=== PATIENT | male | born 1965 | race Caucasian/White ===

== ENCOUNTER 2016-08-30 11:46 | Inpatient (IN) | payer OTHER ==
[~2016-08-30] VITALS: Ht 175.3 cm; Wt 148.5 kg
[~2016-08-30 11:46] MED LIST: FOSI40TA3 PO; HYD25 PO
[2016-08-30] MEDS ORDERED: ASPIRIN 81 MG TAB PO STA (11:56)
[2016-08-30] MEDS ORDERED: NITROGLYCERIN 2% 1 GM OINT PKT TD STA (11:56)
[2016-08-30] MEDS ORDERED: NITROGLYCERIN (SL) 0.4 MG TAB SL PRN (12:00)
[2016-08-30 12:29] LABS: ADD SCAN DIFF NO
[2016-08-30 12:32] LABS: BASOPHILS % 0.5 % (0.0-2.0); EOSINOPHILS # 0.1 10^3/ul (0.0-0.5); EOSINOPHILS % 1.2 % (0.0-7.0); HEMATOCRIT 46.5 % (42.0-52.0); HEMOGLOBIN 13.5 g/dl (14.0-18.0); LYMPHOCYTES # 2.4 10^3/ul (0.8-2.9); LYMPHOCYTES % 28.1 % (15.0-51.0); MEAN CORPUSCULAR HEMOGLOBIN 24.4 pg (29.0-33.0); MEAN CORPUSCULAR VOLUME 83.9 fl (82.0-101.0); MEAN PLATELET VOLUME 11.5 fl (7.4-10.4); MONOCYTE # 0.8 10^3/ul (0.3-0.9); MONOCYTES % 9.2 % (0.0-11.0); NEUTROPHIL # 5.2 10^3/ul (1.6-7.5); NEUTROPHILS % 60.6 % (39.0-77.0); PLATELET COUNT 204 10^3/UL (140-415); RED BLOOD COUNT 5.54 10^6/ul (4.70-6.10); RED CELL DISTRIBUTION WIDTH 18.8 % (11.5-14.5); WHITE BLOOD COUNT 8.5 10^3/ul (4.8-10.8)
[2016-08-30 12:46] LABS: POTASSIUM 4.3 mmol/L (3.5-5.1)
[2016-08-30 12:48] LABS: INR 0.95; PROTIME 12.7 Sec (12.2-14.2)
[2016-08-30 12:49] LABS: CREATININE 0.76 mg/dl (0.61-1.24); PARTIAL THROMBOPLASTIN TIME 29.8 Sec (25.0-35.0)
[2016-08-30 12:50] LABS: CALCIUM 8.7 mg/dl (8.4-10.2)
--- NOTE | 2016-08-30 12:59 | RADRPT ---
PROCEDURE: XR Chest. CLINICAL INDICATION: Chest pain. TECHNIQUE: Single frontal view. COMPARISON: 04/20/2016. FINDINGS: The lungs are clear. The heart size is normal. There is no pleural effusion. There is no pneumothorax. IMPRESSION: 1. Normal chest radiograph. RPTAT: QQ .Carlos Rolle MD, MD Date Time Electronically viewed and signed by .Carlos Rolle MD, MD on 08/30/2016 12:58 .R/
[2016-08-30 13:01] LABS: TROPONIN-I 0.055 ng/ml (0.00-0.12)
[2016-08-30] MEDS ORDERED: ONDANSETRON 4 MG INJ IV PRN (13:30)
[2016-08-30] MEDS ORDERED: ACETAMINOPHEN 325 MG TAB PO PRN (13:30)
--- NOTE | 2016-08-30 14:22 | ERA ---
ER Documentation Chief Complaint Date/Time DATE: 08/30/16 TIME: 14:12 Chief Complaint cp, sob today HPI Patient is a 51-year-old male with hypertension and diabetes who presents with chest pain shortness of breath. Started this morning. He said it feels like a stabbing type pain. He felt like he would pass out. The pain comes and goes. He has had no treatment as of yet. He does not know the name of his primary doctor. Upon review of old medical records the patient one previous visit to the ER in 2016. ROS All systems reviewed and are negative except as per history of present illness. Medications Home Meds Reported Medications Hydrochlorothiazide* (Hydrochlorothiazide*) 25 Mg Tab, 25 MG PO DAILY, TAB 08/11/14 Fosinopril Sodium (Fosinopril Sodium) 40 Mg Tablet, 40 MG PO DAILY, TAB 08/11/14 Allergies Allergies: Coded Allergies: No Known Allergy (Unverified , 08/11/14) PMhx/Soc History of Surgery: Yes (LEFT KNEE) Anesthesia Reaction: No Hx Neurological Disorder: No Hx Respiratory Disorders: No Hx Cardiac Disorders: Yes (HTN) Hx Psychiatric Problems: No Hx Miscellaneous Medical Probl: Yes (DM) Hx Alcohol Use: Yes Hx Substance Use: No Hx Tobacco Use: No Smoking Status: Never smoker FmHx Family History: coronary disease Physical Exam Vitals Vital Signs Date Time Temp Pulse Resp B/P Pulse Ox O2 Delivery O2 Flow Rate FiO2 08/30/16 13:50 95 16 119/57 100 Nasal Cannula 2.0 08/30/16 12:41 Nasal Cannula 2 08/30/16 12:41 86 27 122/71 97 Nasal Cannula 2.0 08/30/16 11:51 98.4 104 20 118/78 99 Physical Exam Const: No acute distress Head: Atraumatic Eyes: Normal Conjunctiva ENT: Normal External Ears, Nose and Mouth. Neck: Full range of motion..~ No meningismus. Resp: Clear to auscultation bilaterally Cardio: Regular rate and rhythm, no murmurs Abd: Soft, non tender, non distended. Normal bowel sounds Skin: No petechiae or rashes Back: No midline or flank tenderness Ext: No cyanosis, or edema Neur: Awake and alert Psych: Normal Mood and Affect Result Diagram: 08/30/16 1220 08/30/16 1220 Results 24 hrs Laboratory Tests Test 08/30/16 12:20 White Blood Count 8.510^3/ul Red Blood Count 5.5410^6/ul Hemoglobin 13.5g/dl Hematocrit 46.5% Mean Corpuscular Volume 83.9fl Mean Corpuscular Hemoglobin 24.4pg Mean Corpuscular Hemoglobin Concent 29.0g/dl Red Cell Distribution Width 18.8% Platelet Count 62103^3/UL Mean Platelet Volume 11.5fl Neutrophils % 60.6% Lymphocytes % 28.1% Monocytes % 9.2% Eosinophils % 1.2% Basophils % 0.5% Nucleated Red Blood Cells % 0.0/100WBC Neutrophils # 5.210^3/ul Lymphocytes # 2.410^3/ul Monocytes # 0.810^3/ul Eosinophils # 0.110^3/ul Basophils # 0.010^3/ul Nucleated Red Blood Cells # 0.010^3/ul Prothrombin Time 12.7Sec Prothrombin Time Ratio 1.0 INR International Normalized Ratio 0.95 Activated Partial Thromboplast Time 29.8Sec Sodium Level 137mmol/L Potassium Level 4.3mmol/L Chloride Level 95mmol/L Carbon Dioxide Level 29mmol/L Anion Gap 17 Blood Urea Nitrogen 17mg/dl Creatinine 0.76mg/dl Glucose Level 144mg/dl Calcium Level 8.7mg/dl Troponin I 0.055ng/ml Current Medications Medications (Trade) Dose Ordered Sig/Dave Route PRN Reason Start Time Stop Time Status Last Admin Dose Admin Aspirin (Aspirin) 162 mg ONCE STAT PO 08/30/16 11:56 08/30/16 11:57 DC 08/30/16 12:39 Nitroglycerin (Nitroglycerin 2% Oint) 1 inch ONCE STAT TD 08/30/16 11:56 08/30/16 11:57 DC 08/30/16 12:38 Nitroglycerin (Nitroglycerin (Sl Tab) 0.4 Mg) 1 tab Q5M UP TO 3 DOSES PRN SL CHEST PAIN 08/30/16 12:00 Ondansetron HCl (Zofran Inj) 4 mg ER BRIDGE PRN IV NAUSEA AND/OR VOMITING 08/30/16 13:30 08/31/16 13:29 Acetaminophen (Tylenol Tab) 650 mg ER BRIDGE PRN PO MILD PAIN/FEVER 08/30/16 13:30 08/31/16 13:29 Procedures/MDM EKG #1 read by me: Rate/Rhythm: Regular rate and rhythm at a rate of 100 Intervals: Normal Impression: No evidence of ischemia or arrhythmia EKG #2 read by me: Rate/Rhythm: Regular rate and rhythm at a rate of 91 Intervals: Normal Impression: No evidence of ischemia or arrhythmia CXR neg per radiology. Patient is a 51-year-old male with multiple cardiac risk factors who presents with chest pain or shortness of breath. [address] did not show ST elevations or depressions. His troponin is 0.055. The patient was given aspirin nitroglycerin empirically. I am concerned about acute coronary syndrome. I doubt pneumonia, pneumothorax, pulmonary embolism, or aortic dissection. At this point I believe inpatient admission is appropriate. I spoke with Dr. Kate from the panel team as the patient has [employer] insurance. The patient will be admitted to a telemetry bed. Departure Diagnosis: Primary Impression: Chest pain Qualified Code: R07.9 - Chest pain, unspecified type Condition: MIKEL Ang MD August 30, 2016 14:22
[2016-08-30 15:35] VITALS: Ht 175.3 cm; Wt 148.5 kg
[2016-08-30 15:54] VITALS: BP 106/67; RESP 19
[2016-08-30 16:00] VITALS: PULSE 92
[2016-08-30] MEDS ORDERED: GLUCOSE GEL 15 GRAM TUBE PO PRN ×2 (17:00)
[2016-08-30] MEDS ORDERED: GLUCOSE GEL 15 GRAM TUBE BUCCAL PRN (17:00)
[2016-08-30] MEDS ORDERED: DEXTROSE 50% 50 ML SYRINGE IV PRN ×2 (17:00)
[2016-08-30] MEDS ORDERED: GLUCAGON 1 MG INJ IM PRN (17:00)
[2016-08-30] MEDS: INSULIN ASPART [NOVOLOG] 3 ML PEN SC SCH ×2 (18:05→21:36)
[2016-08-30 19:08] LABS: CREATINE KINASE 95 IU/L (23-200)
[2016-08-30 19:23] LABS: CK-MB 1.66 ng/ml (0.0-2.4); TROPONIN-I < 0.012 ng/ml (0.00-0.12)
[2016-08-30 20:05] VITALS: PULSE 100
[2016-08-30] MEDS ORDERED: morphine 2 MG INJ IV PRN (20:30)
[2016-08-30 20:44] VITALS: BP 95/52; RESP 20
[2016-08-30] MEDS: DOCUSATE SODIUM 100 MG CAP PO SCH (21:33)
[2016-08-30] MEDS: FAMOTIDINE 20 MG TAB PO SCH (21:33)
[2016-08-30 23:15] VITALS: PULSE 76
[2016-08-31] VITALS (11 sets, daily range): BP systolic 120–160; BP diastolic 64–91; PULSE 81–102; RESP 18–20
[2016-08-31 00:32] LABS: CREATINE KINASE 98 IU/L (23-200)
[2016-08-31 00:58] LABS: CK-MB 1.42 ng/ml (0.0-2.4); TROPONIN-I < 0.012 ng/ml (0.00-0.12)
[2016-08-31] MEDS ORDERED: ACCU-CHEK XX SCH ×2 (02:00)
--- NOTE | 2016-08-31 04:01 | HP ---
DATE OF ADMISSION: 08/30/2016 PRESENTING COMPLAINT: Chest pain. HISTORY OF PRESENTING COMPLAINT: This is a morbidly obese gentleman with a history of high blood pr essure and diabetes who comes in today because of midsternal chest pain that has been on and on for the last couple of weeks. The patient says that pain is in the midsternal region, does not exactly radiate, but says that there is some shortness of breath. Pain has been increasing in frequency ove r the last couple of weeks. The patient is obese and has been evaluated for a CPAP machine, but he reports that his doctor has never prescribed this to him. He does snore heavily. He does have a hi story of high blood pressure and diabetes. He was a previous smoker, but he quit more than 25 years ago. He does have a family history of high blood pressure, but there is no premature coronary brannon ry disease that he knows of. PAST MEDICAL HISTORY: 1. High blood pressure. 2. Diabetes. PAST SURGICAL HISTORY: Tonsillectomy and right knee surgery. ALLERGIES: NO KNOWN DRUG ALLERGIES. SOCIAL HISTORY: Quit smoking 25 years ago. Drinks alcohol occasionally. He was at a [facility] and was drinking and had acute onset of chest pain that brought him in this time. REVIEW OF SYSTEMS: A did a 12-point review of systems. He denied passing out episodes. He denied fever, denied coughing. He denies abdominal pain. He denied dysuria, blood in his stool, or hematu herman. Denies focal neurologic deficits. Denies headache, denies vision changes. PHYSICAL EXAMINATION: VITAL SIGNS: Temperature 98.4, pulse 97, respirations 16, blood pressure 196/57, saturation 100%, o xygen via nasal cannula at 2 liters a minute. GENERAL: The patient is an obese, alert, oriented. He was sleeping and snoring heavily when I walk ed in. It took a few shakes to arouse him. Once aroused, he was alert and oriented, able to give m e a history. HEENT: Head is normocephalic with equal, round, and reactive pupils. There was no sclerae jaundice . No conjunctival pallor. Mucous membranes were moist. Posterior pharynx was clear of erythema or exudate. NECK: Obese but seems supple. CHEST: Clear to auscultation with what seems like diminished air entry bilaterally; however, this c ould be due to habitus. CARDIOVASCULAR: Heart sounds S1 and S2 are appreciated. No murmurs. ABDOMEN: Obese, soft, nontender, nondistended, normoactive bowel sounds. EXTREMITIES: There was no lower extremity edema. SKIN: Devoid of rash or jaundice. LABORATORY VALUES: Basic metabolic profile was grossly unremarkable as was a CBC ordered and hypoch romia that was noted. His coag profile was also unremarkable. IMAGING: Chest x-ray did not show any acute cardiopulmonary abnormality, and his EKG on my review s howed regular rate and rhythm with mild tachycardia with a beat of [address] elevations or depressions. ASSESSMENT: The patient is a 51-year-old obese male admitted for chest pain. 1. Chest pressure, rule out acute coronary syndrome. 2. High blood pressure with good home control. 3. Highly probable obstructive sleep apnea versus obesity hypoventilation syndrome. 4. Morbid obesity. 5. Prediabetes. The patient is currently on diet control. PLAN: Admit him to telemetry floor, complete ACS rule out with 3 sets of cardiac enzymes, obtain a 2D echo, and get cardiology consultation. Further interventions will depend on his clinical course. Supportive care would include pain control, antiemetics, and antipyretics if indicated. This plan of care has been discussed with the patient. Questions have been answered. For prophylaxis, he is placed on SCD and PPI. Dictated By: CHARITY PERKINS MD BA/FRED Conf#: [id number] DID#: [id number]
[2016-08-31 07:12] LABS: ADD SCAN DIFF NO
[2016-08-31 07:18] LABS: ABNORMAL IP MESSAGE 1; BASOPHILS % 0.5 % (0.0-2.0); EOSINOPHILS # 0.1 10^3/ul (0.0-0.5); EOSINOPHILS % 1.6 % (0.0-7.0); HEMATOCRIT 48.6 % (42.0-52.0); HEMOGLOBIN 13.6 g/dl (14.0-18.0); LYMPHOCYTES % 24.5 % (15.0-51.0); MEAN CORPUSCULAR VOLUME 85.7 fl (82.0-101.0); MONOCYTE # 0.7 10^3/ul (0.3-0.9); MONOCYTES % 8.8 % (0.0-11.0); NEUTROPHIL # 5.3 10^3/ul (1.6-7.5); NEUTROPHILS % 64.4 % (39.0-77.0); PLATELET COUNT 204 10^3/UL (140-415); RED BLOOD COUNT 5.67 10^6/ul (4.70-6.10); WHITE BLOOD COUNT 8.2 10^3/ul (4.8-10.8)
[2016-08-31 07:33] LABS: POTASSIUM 4.5 mmol/L (3.5-5.1)
[2016-08-31 07:36] LABS: CALCIUM 9.1 mg/dl (8.4-10.2); CREATININE 0.75 mg/dl (0.61-1.24)
[2016-08-31 07:37] LABS: CHOL/HDL RATIO 4.3 RATIO
[2016-08-31] MEDS: INSULIN ASPART [NOVOLOG] 3 ML PEN SC SCH ×2 (08:00→11:51)
[2016-08-31] MEDS: DOCUSATE SODIUM 100 MG CAP PO SCH (08:25)
[2016-08-31] MEDS: FAMOTIDINE 20 MG TAB PO SCH (08:26)
[2016-08-31] MEDS ORDERED: ACETAMINOPHEN 325 MG TAB PO ONE (08:30)
[2016-08-31] MEDS ORDERED: HYDROCHLOROTHIAZIDE 25 MG TAB PO SCH (09:00)
[2016-08-31] MEDS ORDERED: ASPIRIN (EC) 81 MG TAB PO SCH (09:00)
[2016-08-31] MEDS ORDERED: BENAZEPRIL 40 MG TAB PO SCH (09:00)
[2016-08-31 10:21] LABS: IRON 49 ug/dl (35-150)
[2016-08-31 10:31] LABS: TOTAL IRON BINDING CAPACITY 397 ug/dl (241-421)
--- NOTE | 2016-08-31 14:05 | PN ---
Date/Time of Note Date/Time of Note DATE: 08/31/16 TIME: 14:02 Assessment/Plan VTE Prophylaxis VTE Prophylaxis Intervention: heparin Lines/Catheters IV [facility] Urinary Cath still in place: No Assessment/Plan Problems: (1) Morbid obesity with BMI of 45.0-49.9, adult Status: Chronic Comment: Patient has been counseled strenuously (2) Diabetes mellitus type 2 in obese Status: Chronic Comment: On oral agent only. Counseled on the rationale treatment risks and benefits of treatment goals of treatment especially how weight loss would be positive positive and beneficial (3) Sleep apnea Status: Chronic Comment: Due to morbid obesity. He still does not have his device with us and been in progress for over a year with his private doctor had the clinic Qualifiers: Sleep apnea type: obstructive Qualified Code: G47.33 - Obstructive sleep apnea syndrome (4) Chest pain Status: Acute Comment: I do not believe this represents cardiac disease. However given that trying to get him a stress test as an outpatient will be 9 to impossible in any type of expedient fashion will get the test done and then he will be discharged after Qualifiers: Chest pain type: unspecified Qualified Code: R07.9 - Chest pain, unspecified type Subjective 24 Hr Interval Summary Free Text/Dictation Morbidly obese male lying in bed. Constitutional: no complaints Respiratory: no complaints Cardiovascular: chest pain (Chest pain but this is described as pinpoint localized extremely atypical) Gastrointestinal: no complaints Genitourinary: no complaints Exam/Review of Systems Vital Signs Vitals Vital Signs Date Time Temp Pulse Resp B/P Pulse Ox O2 Delivery O2 Flow Rate FiO2 08/31/16 12:19 98.5 89 18 150/90 94 08/31/16 03:15 30 08/30/16 13:50 Nasal Cannula 2.0 Intake and Output 08/30/16 08/30/16 08/31/16 15:00 23:00 07:00 Intake Total 450 ml 700 ml Balance 450 ml 700 ml Exam Constitutional: alert, oriented Respiratory: clear to auscultation, normal air movement Cardiovascular: nl pulses, regular rate and rhythm Gastrointestinal: nl liver, spleen, non-tender, soft Results Result Diagram: 08/31/16 0640 08/31/16 0640 Results 24 hrs Laboratory Tests Test 08/30/16 17:27 08/30/16 18:22 08/30/16 20:24 08/31/16 02:24 Bedside Glucose 102 206 127 Creatine Kinase 95 Creatine Kinase Index 1.7 Creatinine Kinase MB (Mass) 1.66 Troponin I < 0.012 Test 08/31/16 06:40 08/31/16 07:52 08/31/16 08:04 08/31/16 09:15 White Blood Count 8.2 Red Blood Count 5.67 Hemoglobin 13.6 L Hematocrit 48.6 Mean Corpuscular Volume 85.7 Mean Corpuscular Hemoglobin 24.0 L Mean Corpuscular Hemoglobin Concent 28.0 L Red Cell Distribution Width 19.0 H Platelet Count 204 Mean Platelet Volume 12.0 H Neutrophils % 64.4 Lymphocytes % 24.5 Monocytes % 8.8 Eosinophils % 1.6 Basophils % 0.5 Nucleated Red Blood Cells % 0.0 Neutrophils # 5.3 Lymphocytes # 2.0 Monocytes # 0.7 Eosinophils # 0.1 Basophils # 0.0 Nucleated Red Blood Cells # 0.0 Sodium Level 139 Potassium Level 4.5 Chloride Level 96 L Carbon Dioxide Level 32 H Anion Gap 16 Blood Urea Nitrogen 18 Creatinine 0.75 Glucose Level 143 Hemoglobin A1c 7.6 H Calcium Level 9.1 Magnesium Level 2.0 Triglycerides Level 155 H Cholesterol Level 143 LDL Cholesterol, Calculated 79 HDL Cholesterol 33 Cholesterol/HDL Ratio 4.3 Bedside Glucose 134 111 Iron Level 49 Total Iron Binding Capacity 397 Percent Iron Saturation 12 L Test 08/31/16 11:36 Bedside Glucose 160 Medications Medications Current Medications Diagnostic Test (Pha) (Accu-Chek) 1 ea 02 XX ; Start 08/31/16 at 02:00 Diagnostic Test (Pha) (Accu-Chek) 1 ea 02 XX ; Start 08/31/16 at 02:00 Miscellaneous Information 1 ea NOTE XX ; Start 08/30/16 at 17:00 Glucose (Glutose) 15 gm Q15M PRN PO DECREASED GLUCOSE; Start 08/30/16 at 17:00 Glucose (Glutose) 22.5 gm Q15M PRN PO DECREASED GLUCOSE; Start 08/30/16 at 17:00 Dextrose (D50w Syringe) 25 ml Q15M PRN IV DECREASED GLUCOSE; Start 08/30/16 at 17:00 Dextrose (D50w Syringe) 50 ml Q15M PRN IV DECREASED GLUCOSE; Start 08/30/16 at 17:00 Glucagon (Glucagen) 1 mg Q15M PRN IM DECREASED GLUCOSE; Start 08/30/16 at 17:00 Glucose (Glutose) 15 gm Q15M PRN BUCCAL DECREASED GLUCOSE; Start 08/30/16 at 17: 00 Aspirin (Halfprin) 81 mg DAILY PO Last administered on 08/31/16 08:26; Admin Dose 81 MG; Start 08/31/16 at 09:00 Hydrochlorothiazide (Hydrochlorothiazide) 25 mg DAILY PO Last administered on 08:26; Admin Dose 25 MG; Start 08/31/16 at 09:00 Benazepril HCl (Lotensin) 40 mg DAILY PO Last administered on 08/31/16 08:27; Admin Dose 40 MG; Start 08/31/16 at 09:00 Morphine Sulfate (morphine) 2 mg Q4H PRN IV pain; Start 08/30/16 at 20:30 Famotidine (Pepcid) 20 mg BID PO Last administered on 08/31/16 08:26; Admin Dose 20 MG; Start 08/30/16 at 21:00 Docusate Sodium (Colace) 100 mg BID PO Last administered on 08/31/16 08:25; Admin Dose 100 MG; Start 08/30/16 at 21:00 MARTIN OVIEDO MD August 31, 2016 14:05
--- NOTE | 2016-08-31 14:32 | PDOCDIS ---
Discharge Instructions DIAGNOSIS Discharge Diagnosis: Atypical chest pain; morbid obesity; obstructive sleep apnea; dm2 CONDITION Patient Condition: Good HOME CARE INSTRUCTIONS: Special Diet: 1800 ADA ACTIVITY: Activity Restrictions: Avoid heavy lifting FOLLOW UP/APPOINTMENTS Appointments Primary care physician next 2 weeks; please get CPAP device; outpatient cardiac evaluation MARTIN OVIEDO MD August 31, 2016 14:32
[2016-08-31] MEDS ORDERED: ASPI-664 PO (14:33)
--- NOTE | 2016-08-31 14:33 | RADRPT ---
Echocardiogram Report Patient Name: ALVINO RODRIGUEZ Gender: Male Date: 1965 Study Date: 31-Aug-2016 Wood Buffer: [facility] Location: 5545 Ref. Physician: CHARITY PERKINS Quality: Technically Difficult Study Procedures: Transthoracic echocardiogram with complete 2D, M-Mode, and doppler examination. Indications: Chest Pain. 2D/M Mode Doppler Measurement Value Normal Ranges Measurement Value Normal Ranges LVIDd 2D 4.4 3.5 - 5.6 cm AV Peak Keith 1.2 m/sec LVIDs 2D 3.5 2.1 - 4.1 cm AV Peak PG 6.0 mmHg LVPWd 2D 1.1 0.6 - 1.1 cm LVOT Peak Keith 0.7 m/sec IVSd 2D 1.1 0.6 - 1.1 cm LVOT Peak PG 2.1 mmHg AoR Diam 2D 3.0 2.0 - 3.7 cm MV E Peak Keith 0.7 m/sec EDV 2D 88.2 cm3 MV A Peak Keith 1.0 m/sec ESV 2D 43.0 cm3 MV E/A 0.7 LA Dimen 2D 3.6 2.3 - 4.0 cm MV Decel Time 88 msec MV Decel Floyd 8 MV E/A 0.7 Findings Left Ventricle: Normal left ventricular systolic function. Normal left ventricular cavity size. Left ventricular wall thickness upper limits of normal. Ejection fraction is visually estimated at 60 %. Tissue Doppler/Mitral Doppler indices are consistent with impaired relaxation (Stage I diastolic dysfunction). Right Ventricle: Normal right ventricular size. Normal right ventricular systolic function. Left Atrium: The left atrium is normal in size. Right Atrium: Right atrium at upper limits of normal. Mitral Valve: Mild mitral annular calcification. Trace mitral regurgitation. Aortic Valve: Normal appearance of the aortic valve. No significant aortic stenosis or insufficiency. Tricuspid Valve: Tricuspid valve not well visualized. There is trace tricuspid regurgitation. Pulmonic Valve: There is trace pulmonic regurgitation. Pericardium: Normal pericardium with no significant pericardial effusion. Aorta: Normal aortic root. IVC: Dilated inferior vena cava with poor inspiratory collapse consistent with elevated right atrial pressures. Conclusions Normal left ventricular systolic function. Normal left ventricular cavity size. Left ventricular wall thickness upper limits of normal. Ejection fraction is visually estimated at 60 %. Tissue Doppler/Mitral Doppler indices are consistent with impaired relaxation (Stage I diastolic dysfunction). Normal right ventricular size. Normal right ventricular systolic function. The left atrium is normal in size. Right atrium at upper limits of normal. No significant valvular stenosis or regurgitation seen. Normal pericardium with no significant pericardial effusion. Electronically Signed By: Abdulkadir Trujillo 31-Aug-2016 14:32:29 -0700 Patient Name: ALVINO RODRIGUEZ Study Date: 31-Aug-2016 [id number]
--- NOTE | 2016-08-31 14:37 | DS ---
Date/Time of Note Date/Time of Note DATE: 08/31/16 TIME: 14:35 Discharge Summary Admission/Discharge Info Admit Date/Time August 30, 2016 at 13:08 Discharge Date/Time 08/31/2016 Final Diagnosis Atypical chest pain; diabetes mellitus type 2; morbid obesity; obstructive sleep apnea; Patient Condition: Good Consults Cardiology Procedures Echocardiogram and rule out FL protocol Hx of Present Illness This is a morbidly obese gentleman with a history of high blood pressure and diabetes who comes in today because of midsternal chest pain that has been on and on for the last couple of weeks. The patient says that pain is in the midsternal region, does not exactly radiate, but says that there is some shortness of breath. Pain has been increasing in frequency over the last couple of weeks. The patient is obese and has been evaluated for a CPAP machine , but he reports that his doctor has never prescribed this to him. He does snore heavily. He does have a history of high blood pressure and diabetes. He was a previous smoker, but he quit more than 25 years ago. He does have a family history of high blood pressure, but there is no premature coronary artery disease that he knows of. Hospital Course Patient has gone overnight with negative cardiac enzymes. On the scruff worker review of systems in my review of systems we feel this is chest wall pain and absolutely typical for cardiac pain. Patient is asymptomatic at this time. I believe it would be in the best interest of this patient is for him to get started on his CPAP and to go on a weight loss protocol to bring his weight down 10 kg. At this time he is being discharged home in improved condition as compared to the time of admission he is competent for medical decisions he has no known chemical diseases he has good rehabilitation potential. He will follow -up with his primary care physician in a week Home Meds Reported Medications Hydrochlorothiazide* (Hydrochlorothiazide*) 25 Mg Tab, 25 MG PO DAILY, TAB 08/11/14 Fosinopril Sodium (Fosinopril Sodium) 40 Mg Tablet, 40 MG PO DAILY, TAB 08/11/14 Pending Labs Laboratory Tests Test 08/30/16 17:27 08/30/16 18:22 08/30/16 20:24 08/31/16 02:24 Bedside Glucose 102mg/dL (70-220) 206mg/dL (70-220) 127mg/dL (70-220) Creatine Kinase 95IU/L (23-200) Creatine Kinase Index 1.7 Creatinine Kinase MB (Mass) 1.66ng/ml (0.0-2.4) Troponin I < 0.012ng/ml (0.00-0.12) Test 08/31/16 06:40 08/31/16 07:52 08/31/16 08:04 08/31/16 09:15 White Blood Count 8.210^3/ul (4.8-10.8) Red Blood Count 5.6710^6/ul (4.70-6.10) Hemoglobin 13.6g/dl (14.0-18.0) Hematocrit 48.6% (42.0-52.0) Mean Corpuscular Volume 85.7fl (82.0-101.0) Mean Corpuscular Hemoglobin 24.0pg (29.0-33.0) Mean Corpuscular Hemoglobin Concent 28.0g/dl (32.0-37.0) Red Cell Distribution Width 19.0% (11.5-14.5) Platelet Count 00472^3/UL (140-415) Mean Platelet Volume 12.0fl (7.4-10.4) Neutrophils % 64.4% (39.0-77.0) Lymphocytes % 24.5% (15.0-51.0) Monocytes % 8.8% (0.0-11.0) Eosinophils % 1.6% (0.0-7.0) Basophils % 0.5% (0.0-2.0) Nucleated Red Blood Cells % 0.0/100WBC (0.0-0.0) Neutrophils # 5.310^3/ul (1.6-7.5) Lymphocytes # 2.010^3/ul (0.8-2.9) Monocytes # 0.710^3/ul (0.3-0.9) Eosinophils # 0.110^3/ul (0.0-0.5) Basophils # 0.010^3/ul (0.0-0.1) Nucleated Red Blood Cells # 0.010^3/ul (0.0-0.0) Sodium Level 139mmol/L (135-144) Potassium Level 4.5mmol/L (3.5-5.1) Chloride Level 96mmol/L (97-110) Carbon Dioxide Level 32mmol/L (21-31) Anion Gap 16 (8-16) Blood Urea Nitrogen 18mg/dl (7-20) Creatinine 0.75mg/dl (0.61-1.24) Glucose Level 143mg/dl (70-220) Hemoglobin A1c 7.6% (0-5.9) Calcium Level 9.1mg/dl (8.4-10.2) Magnesium Level 2.0mg/dl (1.7-2.5) Triglycerides Level 155mg/dl (0-149) Cholesterol Level 143mg/dl (100-200) LDL Cholesterol, Calculated 79mg/dl HDL Cholesterol 33mg/dl (28-71) Cholesterol/HDL Ratio 4.3RATIO Bedside Glucose 134mg/dL (70-220) 111mg/dL (70-220) Iron Level 49ug/dl (35-150) Total Iron Binding Capacity 397ug/dl (241-421) Percent Iron Saturation 12% SAT (22-52) Test 08/31/16 11:36 Bedside Glucose 160mg/dL (70-220) MARTIN OVIEDO MD August 31, 2016 14:37
--- NOTE | 2016-08-31 14:43 | CONS ---
Date/Time of Note Date/Time of Note DATE: 08/31/16 TIME: 14:33 Assessment/Plan Assessment/Plan Additional Assessment/Plan Chest pain Preserved ejection fraction Hypertension Morbid obesity Sleep apnea -Patient with reproducible chest pain as well as sharp symptoms lasting a few seconds. Serial cardiac enzymes remain negative, ECG without significant ischemic abnormalities, echocardiogram with preserved ejection fraction. Patient with no further symptoms. Given the above workup, symptoms are unlikely to be of cardiac origin. At the current time, no further inpatient cardiac workup needed at the current time. Consultation Date/Type/Reason Admit Date/Time August 30, 2016 at 13:08 Type of Consultation: cv Reason for Consultation Chest pain Hx of Present Illness This is a 51-year-old male with past medical history of obstructive sleep apnea , hypertension, morbid obesity who presents with chest pain. First episode was while driving with one episode of sharp discomfort on the midsternum lasting for approximately 3-4 seconds. No associated shortness of breath, dizziness or lightheadedness. He had a second episode a few hours later lasting for approximately 10 seconds. Same characteristic with sharp discomfort. No associated shortness of breath, dizziness or lightheadedness. Because of the second episode of symptoms, patient came to emergency room for further evaluation and care. He did have a few brief episodes of similar discomfort overnight lasting for a few seconds and then resolved. Otherwise, he denies exertional chest pain. He does get occasional shortness of breath at rest and with activity. He complains of severe back pain over the past 2 years. 12 point review of systems was performed with all pertinent positives and negatives mentioned above and all else is negative Constitutional: no complaints Respiratory: no complaints Cardiovascular: chest pain (Chest pain but this is described as pinpoint localized extremely atypical) Gastrointestinal: no complaints Genitourinary: no complaints Past Medical History Morbid obesity Medical History: high cholesterol, hypertension Family History Significant Family History: no pertinent family hx Social History Alcohol Use: other (Occasional) Smoking Status: Former smoker Exam/Review of Systems Vital Signs Vitals Vital Signs Date Time Temp Pulse Resp B/P Pulse Ox O2 Delivery O2 Flow Rate FiO2 08/31/16 12:19 98.5 89 18 150/90 94 08/31/16 03:15 30 08/30/16 13:50 Nasal Cannula 2.0 Intake and Output 08/30/16 08/30/16 08/31/16 15:00 23:00 07:00 Intake Total 450 ml 700 ml Balance 450 ml 700 ml Exam Morbidly obese, no apparent distress Constitutional: alert, oriented Head: normocephalic Neck: supple Respiratory: clear to auscultation, normal air movement Cardiovascular: other (S1-S2 heard, no murmurs appreciated), regular rate and rhythm Gastrointestinal: bowel sounds, non-tender, other (Mild epigastric discomfort) , soft Musculoskeletal: other (Tenderness palpation left side of chest wall) Extremities: edema Results Result Diagram: 08/31/16 0640 08/31/16 0640 Results 24 hrs Laboratory Tests Test 08/30/16 17:27 08/30/16 18:22 08/30/16 20:24 08/31/16 02:24 Bedside Glucose 102 206 127 Creatine Kinase 95 Creatine Kinase Index 1.7 Creatinine Kinase MB (Mass) 1.66 Troponin I < 0.012 Test 08/31/16 06:40 08/31/16 07:52 08/31/16 08:04 08/31/16 09:15 White Blood Count 8.2 Red Blood Count 5.67 Hemoglobin 13.6 L Hematocrit 48.6 Mean Corpuscular Volume 85.7 Mean Corpuscular Hemoglobin 24.0 L Mean Corpuscular Hemoglobin Concent 28.0 L Red Cell Distribution Width 19.0 H Platelet Count 204 Mean Platelet Volume 12.0 H Neutrophils % 64.4 Lymphocytes % 24.5 Monocytes % 8.8 Eosinophils % 1.6 Basophils % 0.5 Nucleated Red Blood Cells % 0.0 Neutrophils # 5.3 Lymphocytes # 2.0 Monocytes # 0.7 Eosinophils # 0.1 Basophils # 0.0 Nucleated Red Blood Cells # 0.0 Sodium Level 139 Potassium Level 4.5 Chloride Level 96 L Carbon Dioxide Level 32 H Anion Gap 16 Blood Urea Nitrogen 18 Creatinine 0.75 Glucose Level 143 Hemoglobin A1c 7.6 H Calcium Level 9.1 Magnesium Level 2.0 Triglycerides Level 155 H Cholesterol Level 143 LDL Cholesterol, Calculated 79 HDL Cholesterol 33 Cholesterol/HDL Ratio 4.3 Bedside Glucose 134 111 Iron Level 49 Total Iron Binding Capacity 397 Percent Iron Saturation 12 L Test 08/31/16 11:36 Bedside Glucose 160 Medications Medications Current Medications Diagnostic Test (Pha) (Accu-Chek) XX ; Start 08/31/16 at 02:00 Diagnostic Test (Pha) (Accu-Chek) XX ; Start 08/31/16 at 02:00 Miscellaneous Information 1 ea NOTE XX ; Start 08/30/16 at 17:00 Glucose (Glutose) 15 gm Q15M PRN PO DECREASED GLUCOSE; Start 08/30/16 at 17:00 Glucose (Glutose) 22.5 gm Q15M PRN PO DECREASED GLUCOSE; Start 08/30/16 at 17:00 Dextrose (D50w Syringe) 25 ml Q15M PRN IV DECREASED GLUCOSE; Start 08/30/16 at 17:00 Dextrose (D50w Syringe) 50 ml Q15M PRN IV DECREASED GLUCOSE; Start 08/30/16 at 17:00 Glucagon (Glucagen) 1 mg Q15M PRN IM DECREASED GLUCOSE; Start 08/30/16 at 17:00 Glucose (Glutose) 15 gm Q15M PRN BUCCAL DECREASED GLUCOSE; Start 08/30/16 at 17: 00 Aspirin (Halfprin) 81 mg DAILY PO Last administered on 08/31/16 08:26; Admin Dose 81 MG; Start 08/31/16 at 09:00 Hydrochlorothiazide (Hydrochlorothiazide) 25 mg DAILY PO Last administered on 08:26; Admin Dose 25 MG; Start 08/31/16 at 09:00 Benazepril HCl (Lotensin) 40 mg DAILY PO Last administered on 08/31/16 08:27; Admin Dose 40 MG; Start 08/31/16 at 09:00 Morphine Sulfate (morphine) 2 mg Q4H PRN IV pain; Start 08/30/16 at 20:30 Famotidine (Pepcid) 20 mg BID PO Last administered on 08/31/16 08:26; Admin Dose 20 MG; Start 08/30/16 at 21:00 Docusate Sodium (Colace) 100 mg BID PO Last administered on 08/31/16 08:25; Admin Dose 100 MG; Start 08/30/16 at 21:00 Procedures Procedures ECG demonstrates sinus rhythm at 100 bpm, normal QRS duration, no significant ischemic STT wave abnormalities Abdulkadir Trujillo DO August 31, 2016 14:43
== END 2016-08-31 16:52 | disposition home or self-care (01) | DRG 313 ==
LOC: E/R 11:46 → MS4 13:08
PROVIDERS: ADMIT Family Medicine; ATTEND Family Medicine
PROC: 5A09357 Assistance with Respiratory Ventilation, Less than 24 Consecutive Hours, Continuous Positive Airway Pressure (ICD-10-PCS; principal; 2016-08-30)
DX: R07.89 Other chest pain (principal); E66.2 Morbid (severe) obesity with alveolar hypoventilation; I10 Essential (primary) hypertension; Z68.42 Body mass index [BMI] 45.0-49.9, adult; E11.9 Type 2 diabetes mellitus without complications; G47.33 Obstructive sleep apnea (adult) (pediatric); Z79.4 Long term (current) use of insulin; Z87.891 Personal history of nicotine dependence
CPT/HCPCS: 36415; 71010; 80048; 80061; 82550; 82553; 82962; 83036; 83540; 83735; 84484; 85025; 85610; 85730; 93005; 93306; 94660; J1815

== ENCOUNTER 2016-12-22 00:13 | Inpatient (IN) | payer OTHER ==
[~2016-12-22] VITALS: Ht 175.3 cm; Wt 103.5 kg
[~2016-12-22 00:13] MED LIST changes: +ASPI-664 PO
[2016-12-22] MEDS ORDERED: SOD CHLORIDE 0.9% 1,000 ML IV STA ×4 (00:51→04:48)
[2016-12-22 01:43] LABS: BASOPHIL # 0.1 10^3/ul (0.0-0.1); BASOPHILS % 0.5 % (0.0-2.0); EOSINOPHILS # 0.1 10^3/ul (0.0-0.5); EOSINOPHILS % 0.4 % (0.0-7.0); HEMATOCRIT 47.5 % (42.0-52.0); HEMOGLOBIN 14.4 g/dl (14.0-18.0); LYMPHOCYTES # 3.3 10^3/ul (0.8-2.9); LYMPHOCYTES % 21.9 % (15.0-51.0); MEAN CORPUSCULAR HGB CONC 30.3 g/dl (32.0-37.0); MEAN CORPUSCULAR VOLUME 85.7 fl (82.0-101.0); MEAN PLATELET VOLUME 12.1 fl (7.4-10.4); MONOCYTE # 1.4 10^3/ul (0.3-0.9); MONOCYTES % 9.4 % (0.0-11.0); NEUTROPHILS % 67.1 % (39.0-77.0); PLATELET COUNT 245 10^3/UL (140-415); RED BLOOD COUNT 5.54 10^6/ul (4.70-6.10); RED CELL DISTRIBUTION WIDTH 15.5 % (11.5-14.5); WHITE BLOOD COUNT 15.2 10^3/ul (4.8-10.8)
--- NOTE | 2016-12-22 02:01 | RADRPT ---
PROCEDURE: XR Chest. CLINICAL INDICATION: Chest pain. TECHNIQUE: Single frontal chest x-ray. COMPARISON: 08/30/2016 FINDINGS: The cardiomediastinal silhouette is unremarkable. There is no congestive heart failure.. No focal i nfiltrate is seen. There is no pleural effusion. There is no pneumothorax. The osseous structures are unremarkable. IMPRESSION: 1. No active disease. RPTAT: HMVK .Abdulkadir Maloney MD, MD Date Time Electronically viewed and signed by .Abdulkadir Maloney MD, on 12/22/2016 02:00 .K/
[2016-12-22 02:05] LABS: CALCIUM 9.9 mg/dl (8.4-10.2); CREATININE 2.26 mg/dl (0.61-1.24); POTASSIUM 4.2 mmol/L (3.5-5.1)
[2016-12-22 02:15] LABS: TROPONIN-I 0.025 ng/ml (0.00-0.12)
--- NOTE | 2016-12-22 02:15 | RADRPT ---
PROCEDURE: CT BRAIN WITHOUT CONTRAST CLINICAL INDICATION: 51-year-old male with headaches. TECHNIQUE: The study was performed utilizing a GE LightSpeed VCT 64-slice CT scanner. Direct axia l sections were obtained from the foramen magnum to the vertex without the use of intravenous contra st material. Sagittal and coronal reformations were obtained. One or more the following dose reduct ion techniques were utilized: automated exposure control, adjustment of the mA and/or kV according t o patient's size or use of iterative reconstruction technique. The images were viewed on a PACS [employer]. CTD/vol = 45.0 mGy; Total Exam DLP = 720.2 mGy-cm. COMPARISON: None. FINDINGS: The ventricles have a normal size, shape and position. There is no evidence for mass effect or midl ine shift. There are no intracranial areas of abnormal attenuation. There is no evidence for acute intra or extra-axial blood. The bony calvarium is intact. Bilateral proptosis is noted. There is mi nimal polypoidal mucosal thickening within the inferior maxillary sinuses. No air-fluid levels are noted. The mastoid air cells are without significant soft tissue. IMPRESSION: 1. The intracranial contents are unremarkable on this noncontrast CT scan of the brain. 2. Bilateral proptosis. 3. Minimal polypoidal mucosal thickening maxillary sinuses. .Ar Ortiz MD, Date Time Electronically viewed and signed by .Ar Ortiz MD, on 12/22/2016 02:15 .M/
[2016-12-22 03:27] LABS: ALBUMIN 4.4 g/dl (3.3-4.9); BILIRUBIN,INDIRECT 0.2 mg/dl (0-1.1); BILIRUBIN,TOTAL 0.2 mg/dl (0.2-1.3)
--- NOTE | 2016-12-22 03:33 | ERA ---
ER Documentation Chief Complaint Date/Time DATE: 12/22/16 TIME: 03:30 Chief Complaint dizzy x 2 days w/ his BP checked@60 systole@home, hx HTN/DM HPI Patient is a 51-year-old male with hypertension diabetes who says "I do not feel good". His blood pressure was 60/48 at home when he checked it. He said that for the past 2 weeks he has been feeling bad. He said 2 weeks ago he started after eating at the beach when he had blurry vision and cold sweats. He did not go to the ER and has been feeling like this for the past 2 weeks when he decided to come to the ER today. Upon review of old medical records this is the patient's third visit to the ER since 2016. ROS All systems reviewed and are negative except as per history of present illness. Medications Home Meds Active Scripts Aspirin* (Aspirin* EC) 81 Mg Tablet.dr, 81 MG PO DAILY for 90 Days, 1 Refill Prov:MARTIN OVIEDO MD 08/31/16 Reported Medications Hydrochlorothiazide* (Hydrochlorothiazide*) 25 Mg Tab, 25 MG PO DAILY, TAB 08/11/14 Fosinopril Sodium (Fosinopril Sodium) 40 Mg Tablet, 40 MG PO DAILY, TAB 08/11/14 Allergies Allergies: Coded Allergies: No Known Allergy (Unverified , 08/11/14) PMhx/Soc History of Surgery: Yes (knee surgery) Anesthesia Reaction: No Hx Neurological Disorder: No Hx Respiratory Disorders: No Hx Cardiac Disorders: Yes (HTN) Hx Psychiatric Problems: No Hx Miscellaneous Medical Probl: Yes (DM, BPH, GERD) Hx Alcohol Use: Yes Hx Substance Use: No Hx Tobacco Use: Yes Smoking Status: Never smoker FmHx Family History: coronary disease Physical Exam Vitals Vital Signs Date Time Temp Pulse Resp B/P Pulse Ox O2 Delivery O2 Flow Rate FiO2 12/22/16 02:58 79 18 88/62 97 Room Air 12/22/16 00:39 98.6 100 20 97/55 99 Physical Exam Const: No acute distress Head: Atraumatic Eyes: Normal Conjunctiva ENT: Normal External Ears, Nose and Mouth. Neck: Full range of motion..~ No meningismus. Resp: Clear to auscultation bilaterally Cardio: Regular rate and rhythm, no murmurs Abd: Soft, non tender, non distended. Normal bowel sounds Skin: No petechiae or rashes Back: No midline or flank tenderness Ext: No cyanosis, or edema Neur: Awake and alert, Cranial nerves II through XII are intact, no slurred speech Psych: Normal Mood and Affect Result Diagram: 12/22/1610412/22/16104 Results 24 hrs Laboratory Tests Test 12/22/16 01:05 White Blood Count 15.210^3/ul Red Blood Count 5.5410^6/ul Hemoglobin 14.4g/dl Hematocrit 47.5% Mean Corpuscular Volume 85.7fl Mean Corpuscular Hemoglobin 26.0pg Mean Corpuscular Hemoglobin Concent 30.3g/dl Red Cell Distribution Width 15.5% Platelet Count 79420^3/UL Mean Platelet Volume 12.1fl Neutrophils % 67.1% Lymphocytes % 21.9% Monocytes % 9.4% Eosinophils % 0.4% Basophils % 0.5% Nucleated Red Blood Cells % 0.0/100WBC Neutrophils # (Manual) 10.210^3/ul Lymphocytes # 3.310^3/ul Monocytes # 1.410^3/ul Eosinophils # 0.110^3/ul Basophils # 0.110^3/ul Nucleated Red Blood Cells # 0.010^3/ul Sodium Level 140mmol/L Potassium Level 4.2mmol/L Chloride Level 99mmol/L Carbon Dioxide Level 24mmol/L Anion Gap 21 Blood Urea Nitrogen 36mg/dl Creatinine 2.26mg/dl Glucose Level 161mg/dl Calcium Level 9.9mg/dl Total Bilirubin 0.2mg/dl Direct Bilirubin 0.00mg/dl Indirect Bilirubin 0.2mg/dl Aspartate Amino Transf (AST/SGOT) 29IU/L Alanine Aminotransferase (ALT/SGPT) 51IU/L Alkaline Phosphatase 87IU/L Troponin I 0.025ng/ml Total Protein 8.0g/dl Albumin 4.4g/dl Lipase 152U/L Current Medications Medications (Trade) Dose Ordered Sig/Dave Route PRN Reason Start Time Stop Time Status Last Admin Dose Admin Sodium Chloride 1,000 ml @ 1,000 mls/hr Q1H STAT IV 12/22/16 00:51 12/22/16 01:50 DC 12/22/16 01:17 Sodium Chloride (NS) 1,000 ml @ 1,000 mls/hr Q1H STAT IV 12/22/16 02:49 12/22/16 03:48 12/22/16 02:55 Procedures/MDM EKG read by me: Rate/Rhythm: Sinus tachycardia rate of 105 Intervals: Normal Impression: Sinus tachycardia without ischemia CT brain negative per radiology. Chest x-ray negative per radiology. Patient is a 51-year-old male with diabetes and hypertension who presents not feeling well. He had low blood pressure. He normally has high blood pressure. He was found to have an elevated creatinine of 2.25 which is elevated from 0.75 when he was here in August. This shows acute renal failure and I am concerned about his uncontrolled diabetes and hypertension may be the cause of this. He will need admission to the hospital for further treatment. He was given 2 L of normal saline for fluid resuscitation. I doubt sepsis at this time the patient otherwise looks well. I believe his blood pressure may be related to poor ability to obtain the blood pressure given his obesity. Critical Care: Time: 35 minutes excluding all billable procedures. Treatments/Evaluations: Close monitoring and treatment of unstable vital signs, cardiorespiratory, and neurologic status, while maintaining tight balance of fluid, respiratory, and cardiac interventions. Departure Diagnosis: Primary Impression: Acute renal failure Qualified Code: N17.9 - Acute renal failure, unspecified acute renal failure type Additional Impression: Hypotension Qualified Code: I95.9 - Hypotension, unspecified hypotension type Condition: MIKEL Ang MD Dec 22, 2016 03:33
--- NOTE | 2016-12-22 04:15 | HP ---
Date/Time of Note Date/Time of Note DATE: 12/22/16 TIME: 03:57 Assessment/Plan VTE Prophylaxis VTE Prophylaxis Intervention: LMWH Lines/Catheters IV [facility] [place] Assessment/Plan Assessment/Plan 51 yo M with 1. Headache/ dizziness x 2weeks 2, Hypotension which could be causing #1 3. DANIELITO 4. DM tyoe 2 5. Obesity BMI 33.7 6. Leucocytosis , ?reactive Discussion: Symptoms may be related to medication misuse, but patient will need to be ruled out for acute CVA and ACS and may need further workup if symptoms don't improve. PLAN: Telemetry admission, trend cardiac enzymes, 2d echo if none recently / MRI brain oxygen and nitroglycerin therapy as needed / IV hydration Low calorie diet / SSI Daily aspirin if no allergy or bleeding risk. Get lipid profile, magnesium and TSH levels in am. Further evaluation and treatment will be based on clinical course and findings Supportive care Plan of care has been discussed with patient, questions answered and patient has verbalized understanding. Please review chart and notes for further information if needed. PROPHYLAXIS: Pepcid and lovenox HPI/ROS Admit Date/Time Admit Date/Time 12/22/16 Hx of Present Illness This is a 51-year-old male who presents to the emergency room because of a sick feeling. His symptoms have been going on for about 2 weeks. He describes multiple symptoms like headaches, dizziness, lightheadedness. He has had episodes of blurry vision and cold sweats as well. The patient family checked his blood pressure yesterday and today and they noticed was quite slow. So they brought into the ER to be evaluated. He has had no fever, he has had no dysuria or hematuria. He denies taking his medications for high blood pressure he states he takes his medications as prescribed. Concerning findings in the emergency room included hypotension and abnormal renal function which is acute and as such she is being admitted for further workup. ROS 12 point review if systems was done and pertinent findings are as noted. PMH/Family/Social Past Medical History * HTN * DM Past Surgical History * Tosillectomy * R knee surgery Family History Significant Family History: hypertension Social History Alcohol Use: occasionally Smoking Status: Never smoker Exam/Review of Systems Vital Signs Vitals VS - Last 72 Hours, by Label Date Time Temp Pulse Resp B/P Pulse Ox O2 Delivery O2 Flow Rate FiO2 12/22/16 02:58 79 18 88/62 97 Room Air 12/22/16 00:39 98.6 100 20 97/55 99 Vital Signs Date Time Temp Pulse Resp B/P Pulse Ox O2 Delivery O2 Flow Rate FiO2 12/22/16 02:58 79 18 88/62 97 Room Air 12/22/16 00:39 98.6 Exam Constitutional: alert, oriented, No distress Psych: nl mood/affect Head: atraumatic, normocephalic Eyes: PERRL, No icteric ENMT: mucosa pink and moist Neck: non-tender, supple, No jvd Respiratory: clear to auscultation, diminished breath sounds Cardiovascular: nl pulses, regular rate and rhythm Gastrointestinal: bowel sounds, non-tender, soft Extremities: No edema Neurological: nl mental status Labs Result Diagram: 12/22/1610412/22/16104 Procedures Procedures Laboratory Tests Test 12/22/16 01:05 White Blood Count 15.210^3/ul Red Blood Count 5.5410^6/ul Hemoglobin 14.4g/dl Hematocrit 47.5% Mean Corpuscular Volume 85.7fl Mean Corpuscular Hemoglobin 26.0pg Mean Corpuscular Hemoglobin Concent 30.3g/dl Red Cell Distribution Width 15.5% Platelet Count 77025^3/UL Mean Platelet Volume 12.1fl Neutrophils % 67.1% Lymphocytes % 21.9% Monocytes % 9.4% Eosinophils % 0.4% Basophils % 0.5% Nucleated Red Blood Cells % 0.0/100WBC Neutrophils # (Manual) 10.210^3/ul Lymphocytes # 3.310^3/ul Monocytes # 1.410^3/ul Eosinophils # 0.110^3/ul Basophils # 0.110^3/ul Nucleated Red Blood Cells # 0.010^3/ul Sodium Level 140mmol/L Potassium Level 4.2mmol/L Chloride Level 99mmol/L Carbon Dioxide Level 24mmol/L Anion Gap 21 Blood Urea Nitrogen 36mg/dl Creatinine 2.26mg/dl Glucose Level 161mg/dl Calcium Level 9.9mg/dl Total Bilirubin 0.2mg/dl Direct Bilirubin 0.00mg/dl Indirect Bilirubin 0.2mg/dl Aspartate Amino Transf (AST/SGOT) 29IU/L Alanine Aminotransferase (ALT/SGPT) 51IU/L Alkaline Phosphatase 87IU/L Troponin I 0.025ng/ml Total Protein 8.0g/dl Albumin 4.4g/dl Lipase 152U/L Current Medications Medications (Trade) Dose Ordered Sig/Dave Route PRN Reason Start Time Stop Time Status Last Admin Dose Admin Sodium Chloride 1,000 ml @ 1,000 mls/hr Q1H STAT IV 12/22/16 00:51 12/22/16 01:50 DC 12/22/16 01:17 1,000 MLS/HR Sodium Chloride (NS) 1,000 ml @ 1,000 mls/hr Q1H STAT IV 12/22/16 02:49 12/22/16 03:48 DC 12/22/16 02:55 1,000 MLS/HR I reviewed EKG Rate: tachycardia 115 Rhythm: sinus Note: No ST elevation or depressions noted concerning for acute ischemic event. PROCEDURE: CT BRAIN WITHOUT CONTRAST CLINICAL INDICATION: 51-year-old male with headaches. TECHNIQUE: The study was performed utilizing a [employer] 64-slice CT scanner. Direct axial sections were obtained from the foramen magnum to the vertex without the use of intravenous contrast material. Sagittal and coronal reformations were obtained. One or more the following dose reduction techniques were utilized: automated exposure control, adjustment of the mA and/or kV according to patient's size or use of iterative reconstruction technique. The images were viewed on a PACS workstation. CTD/vol = 45.0 mGy; Total Exam DLP = 720.2 mGy-cm. COMPARISON: None. FINDINGS: The ventricles have a normal size, shape and position. There is no evidence for mass effect or midline shift. There are no intracranial areas of abnormal attenuation. There is no evidence for acute intra or extra-axial blood. The bony calvarium is intact. Bilateral proptosis is noted. There is minimal polypoidal mucosal thickening within the inferior maxillary sinuses. No air- fluid levels are noted. The mastoid air cells are without significant soft tissue. IMPRESSION: 1. The intracranial contents are unremarkable on this noncontrast CT scan of the brain. 2. Bilateral proptosis. 3. Minimal polypoidal mucosal thickening maxillary sinuses. .Ar Ortiz MD, MD Date Time Electronically viewed and signed by .Ar Ortiz MD, on 12/22/2016 02:15 .M/ PROCEDURE: XR Chest. CLINICAL INDICATION: Chest pain. TECHNIQUE: Single frontal chest x-ray. COMPARISON: 08/30/2016 FINDINGS: The cardiomediastinal silhouette is unremarkable. There is no congestive heart failure.. No focal infiltrate is seen. There is no pleural effusion. There is no pneumothorax. The osseous structures are unremarkable. IMPRESSION: 1. No active disease. RPTAT: HMVK .Abdulkadir Maloney MD, MD Date Time Electronically viewed and signed by .Abdulkadir Maloney MD, MD on 12/22/2016 02:00 .K/ CC: MIKEL OROSCO MD Echocardiogram Report Patient Name: ALVINO RODRIGUEZ Gender: Male Date: 1965 Study Date: 31-Aug-2016 [employer] Farmworker: JO[facility] Location: 5545 Ref. Physician: CHARITY PERKINS Quality: Technically Difficult Study Procedures: Transthoracic echocardiogram with complete 2D, M-Mode, and doppler examination. Indications: Chest Pain. 2D/M Mode Doppler Measurement Value Normal Ranges Measurement Value Normal Ranges LVIDd 2D 4.4 3.5 - 5.6 cm AV Peak Keith 1.2 m/sec LVIDs 2D 3.5 2.1 - 4.1 cm AV Peak PG 6.0 mmHg LVPWd 2D 1.1 0.6 - 1.1 cm LVOT Peak Keith 0.7 m/sec IVSd 2D 1.1 0.6 - 1.1 cm LVOT Peak PG 2.1 mmHg AoR Diam 2D 3.0 2.0 - 3.7 cm MV E Peak Keith 0.7 m/sec EDV 2D 88.2 cm3 MV A Peak Keith 1.0 m/sec ESV 2D 43.0 cm3 MV E/A 0.7 LA Dimen 2D 3.6 2.3 - 4.0 cm MV Decel Time 88 msec MV Decel [place] 8 MV E/A 0.7 Findings Left Ventricle: Normal left ventricular systolic function. Normal left ventricular cavity size. Left ventricular wall thickness upper limits of normal. Ejection fraction is visually estimated at 60 %. Tissue Doppler/Mitral Doppler indices are consistent with impaired relaxation (Stage I diastolic dysfunction). Right Ventricle: Normal right ventricular size. Normal right ventricular systolic function. Left Atrium: The left atrium is normal in size. Right Atrium: Right atrium at upper limits of normal. Mitral Valve: Mild mitral annular calcification. Trace mitral regurgitation. Aortic Valve: Normal appearance of the aortic valve. No significant aortic stenosis or insufficiency. Tricuspid Valve: Tricuspid valve not well visualized. There is trace tricuspid regurgitation. Pulmonic Valve: There is trace pulmonic regurgitation. Pericardium: Normal pericardium with no significant pericardial effusion. Aorta: Normal aortic root. IVC: Dilated inferior vena cava with poor inspiratory collapse consistent with elevated right atrial pressures. Conclusions Normal left ventricular systolic function. Normal left ventricular cavity size. Left ventricular wall thickness upper limits of normal. Ejection fraction is visually estimated at 60 %. Tissue Doppler/Mitral Doppler indices are consistent with impaired relaxation (Stage I diastolic dysfunction). Normal right ventricular size. Normal right ventricular systolic function. The left atrium is normal in size. Right atrium at upper limits of normal. No significant valvular stenosis or regurgitation seen. Normal pericardium with no significant pericardial effusion. Electronically Signed By: Abdulkadir Trujillo 31-Aug-2016 14:32:29 -0700 Patient Name: ALVINO RODRIGUEZ Study Date: 31-Aug-[id number] CHARITY PERKINS Dec 22, 2016 04:08
[2016-12-22] MEDS: SOD CHLORIDE 0.9% 1,000 ML IV SCH ×3 (04:30→21:02)
[2016-12-22] MEDS ORDERED: ACETAMINOPHEN 325 MG TAB PO PRN (04:30)
[2016-12-22] MEDS ORDERED: ONDANSETRON 4 MG INJ IV PRN ×2 (04:30)
[2016-12-22] MEDS ORDERED: DEXTROSE 50% 50 ML SYRINGE IV PRN ×2 (05:00)
[2016-12-22] MEDS ORDERED: GLUCAGON 1 MG INJ IM PRN (05:00)
[2016-12-22] MEDS ORDERED: GLUCOSE GEL 15 GRAM TUBE PO PRN ×2 (05:00)
[2016-12-22] MEDS ORDERED: GLUCOSE GEL 15 GRAM TUBE BUCCAL PRN (05:00)
[2016-12-22 05:26] LABS: ADD UMIC YES; UR ASCORBIC ACID NEGATIVE (NEGATIVE); UR BILIRUBIN (Dip) NEGATIVE (NEGATIVE); UR BLOOD (Dip) NEGATIVE (NEGATIVE); UR CLARITY SLIGHTLY CLOUDY (CLEAR); UR COLOR YELLOW (YELLOW); UR GLUCOSE (Dip) NEGATIVE (NEGATIVE); UR KETONES (Dip) NEGATIVE (NEGATIVE); UR LEUKOCYTE ESTERASE (Dip) NEGATIVE Leu/ul (NEGATIVE); UR MUCUS FEW /HPF (NONE SEEN); UR NITRITE (Dip) NEGATIVE (NEGATIVE); UR RBC 1 /HPF (0-5); UR SPECIFIC GRAVITY (Dip) 1.026 (1.003-1.030); UR SQUAMOUS EPITHELIAL CELL FEW /HPF (FEW); UR TOTAL PROTEIN (Dip) 1+ mg/dl (NEGATIVE); UR UROBILINOGEN (Dip) NEGATIVE (NEGATIVE)
[2016-12-22 05:37] LABS: BARBITURATES Negative (NEGATIVE); BENZODIAZEPINES Negative (NEGATIVE); CANNABINOIDS Negative (NEGATIVE); COCAINE Negative (NEGATIVE); OPIATES Positive (NEGATIVE)
[2016-12-22 06:47] LABS: PHOSPHORUS 4.9 mg/dl (2.5-4.9)
[2016-12-22 06:55] LABS: TROPONIN-I 0.014 ng/ml (0.00-0.12)
[2016-12-22 06:59] LABS: CK-MB 2.77 ng/ml (0.0-2.4)
[2016-12-22 07:15] LABS: THYROID STIMULATING HORMONE 2.46 MIU/L (0.465-4.680)
[2016-12-22] MEDS: INSULIN ASPART [NOVOLOG] 3 ML PEN SC SCH ×3 (08:00→17:24)
[2016-12-22 08:25] VITALS: TEMP 98.4
[2016-12-22] MEDS: ASPIRIN (EC) 81 MG TAB PO SCH (09:16)
[2016-12-22] MEDS: FAMOTIDINE 20 MG TAB PO SCH (09:16)
[2016-12-22] MEDS: DOCUSATE SODIUM 100 MG CAP PO SCH ×2 (09:16→20:59)
[2016-12-22 09:37] VITALS: BP 134/84; PULSE 85; RESP 22
--- NOTE | 2016-12-22 11:30 | RADRPT ---
PROCEDURE: MRI Brain without contrast. CLINICAL INDICATION: Headaches and dizziness TECHNIQUE: Multiplanar MRI of the brain without contrast was performed on a 3.0 T scanner with the following sequences obtained: T1-weighted, T2-weighted/FLAIR, diffusion weighted (with ADC map), GR E. COMPARISON: CT brain 12/22/2016 FINDINGS: No acute/recent ischemic infarction or intracranial hemorrhage / blood degradation products are iden tified. No extra-axial fluid collection is seen. There is no mass effect. No midline shift is identified. The ventricles and sulci are within normal limits for size and configuration. A few scattered minimal areas of increased T2-weighted signal intensity are seen in the deep white m atter which nonspecific. Flow voids are identified in the proximal intracranial arteries and dural sinuses suggesting patency . Small bilateral maxillary and right sphenoid sinus mucous retention cysts are noted. IMPRESSION: 1. No evidence of acute intracranial pathology. 2. Minimal nonspecific white matter changes, which may reflect chronic small vessel ischemic change s, possibly sequela of complicated migraines. RPTAT: VV .Luis A Ballesteros MD, MD Date Time Electronically viewed and signed by .Luis A Ballesteros MD, on 12/22/2016 11:29 .O/
[2016-12-22 12:00] VITALS: PULSE 84
[2016-12-22 14:07] LABS: CREATINE KINASE 232 IU/L (23-200)
[2016-12-22 14:25] LABS: CK-MB 2.79 ng/ml (0.0-2.4); TROPONIN-I < 0.012 ng/ml (0.00-0.12)
[2016-12-22 16:00] VITALS: PULSE 81
[2016-12-22] MEDS ORDERED: SOD CHLORIDE 0.9% 1,000 ML IV SCH (17:00)
--- NOTE | 2016-12-22 18:54 | HP ---
Date/Time of Note Date/Time of Note DATE: 12/22/16 TIME: 18:51 Assessment/Plan VTE Prophylaxis VTE Prophylaxis Intervention: SCD's Lines/Catheters (ICD-10 Req.) IV Catheter Type (from Nrsg): Saline Lock HPI/ROS Admit Date/Time Admit Date/Time 12/22/16 Hx of Present Illness Patient seen and examined. Note dictated and to follow. Please call if questions or concerns: [phone]. Thank you for allowing me to participate in Mr. Fernandez's care. ROS Psychological: nl mood/affect PMH/Family/Social Social History Alcohol Use: occasionally Smoking Status: Never smoker Exam/Review of Systems Vital Signs Vitals Vital Signs Date Time Temp Pulse Resp B/P Pulse Ox O2 Delivery O2 Flow Rate FiO2 12/22/16 16:00 81 12/22/16 09:37 22 134/84 98 Room Air 12/22/16 08:25 98.4 Labs Result Diagram: 12/22/16 01012/22/16 010 Medications Medications Current Medications Aspirin (Halfprin) 81 mg DAILY PO Last administered on 12/22/16 09:16; Admin Dose 81 MG; Start 12/22/16 at 09:00 Ondansetron HCl (Zofran Inj) 4 mg Q6H PRN IV NAUSEA AND/OR VOMITING; Start at 04:30 Famotidine (Pepcid) 20 mg DAILY PO Last administered on 12/22/16 09:16; Admin Dose 20 MG; Start 12/22/16 at 09:00 Docusate Sodium (Colace) 100 mg BID PO Last administered on 12/22/16 09:16; Admin Dose 100 MG; Start 12/22/16 at 09:00 Diagnostic Test (Pha) (Accu-Chek) 1 ea 02 XX ; Start 12/23/16 at 02:00 Miscellaneous Information 1 ea NOTE XX ; Start 12/22/16 at 05:00 Glucose (Glutose) 15 gm Q15M PRN PO DECREASED GLUCOSE; Start 12/22/16 at 05:00 Glucose (Glutose) 22.5 gm Q15M PRN PO DECREASED GLUCOSE; Start 12/22/16 at 05: 00 Dextrose (D50w Syringe) 25 ml Q15M PRN IV DECREASED GLUCOSE; Start 12/22/16 at 05:00 Dextrose (D50w Syringe) 50 ml Q15M PRN IV DECREASED GLUCOSE; Start 12/22/16 at 05:00 Glucagon (Glucagen) 1 mg Q15M PRN IM DECREASED GLUCOSE; Start 12/22/16 at 05:00 Glucose 15 gm 15 gm Q15M PRN BUCCAL DECREASED GLUCOSE; Start 12/22/16 at 05:00 Sodium Chloride 1,000 ml @ 80 mls/hr [id number] IV ; Start 12/22/16 at 17:00 Sodium Chloride (NS) 1,000 ml @ 125 mls/hr Q8H IV ; Start 12/22/16 at 19:00; Stop 12/23/16 at 18:59; Status FREDY HERRERA MD Dec 22, 2016 18:54
[2016-12-22 20:00] VITALS: PULSE 83
[2016-12-22 21:08] VITALS: BP 146/84; PULSE 81; RESP 18
[2016-12-23] VITALS (14 sets, daily range): BP systolic 133–159; BP diastolic 78–98; PULSE 75–80; RESP 18; Ht 175.3 cm; Wt 103.5 kg
[2016-12-23] MEDS: INSULIN ASPART [NOVOLOG] 3 ML PEN SC SCH ×5 (00:30→20:43)
[2016-12-23] MEDS: ACCU-CHEK XX SCH (01:32)
[2016-12-23] MEDS: SOD CHLORIDE 0.9% 1,000 ML IV SCH ×3 (03:00→11:00)
--- NOTE | 2016-12-23 05:19 | CONS ---
DATE OF ADMISSION: 12/22/2016 DATE OF CONSULTATION: 12/22/2016 REASON FOR CONSULT: Acute kidney injury. HISTORY OF PRESENT ILLNESS: The patient is a pleasant 51-year- old gentleman with a past medical history of type 2 diabetes mellitus for about 1 year, hypertension, and morbid obesity who presented to [facility] for evaluation of headaches and dizziness of 2 weeks' duration. Upon presentation, the gentleman was found to have a systolic blood pressure in the 80s. To complicate matters, laboratory data also revealed an elevated creatinine of 2.26 mg/dL. Of note, his last creatinine on August 2016 was 0.5 mg/dL. He denies any nausea or vomiting or outflow issues. A Renal consultation has been placed to address this gentleman's acute decline in GFR. ALLERGIES: HE HAS NO KNOWN DRUG ALLERGIES. REVIEW OF SYSTEMS: He currently denies any nausea, vomiting, diarrhea, dysuria, chest pain, or shortness of breath. PAST MEDICAL HISTORY: 1. Hypertension. 2. Type 2 diabetes mellitus. OUTPATIENT MEDICATIONS: 1. Fosinopril 40 mg daily. 2. Aspirin 81 mg daily. 3. Hydrochlorothiazide 25 mg p.o. daily. FAMILY HISTORY: Noncontributory at this time. SOCIAL HISTORY: He has no history of recreational drug use. PHYSICAL EXAMINATION: VITALS: Current vitals demonstrate a temperature of 98.4, pulse 85, respirations 22, blood pressure 98. HEENT EXAM: Atraumatic, normocephalic. CARDIOVASCULAR EXAM: S1, S2 regular. PULMONARY EXAM: Clear to auscultation. ABDOMEN: Soft, benign, nontender, and nondistended. EXTREMITIES: Fail to reveal any edema. NEUROLOGICAL EXAM: The patient is awake, alert, and oriented x3 with no focal deficits. IMPRESSION AND PLAN: Nonoliguric acute kidney injury. I suspect this gentleman has acute decline in GFR, one that is related to hypoperfusion injury/hypotension leading to acute tubular necrosis. At this juncture, I agree with holding his angiotensin receptor sunil to allow for better renal perfusion. Moreover, I agree with holding his thiazide diuretic while we are administering IV fluids. He does have a few hyalin casts in his urine, suggestive of hypoperfusion injury. I have held off on ordering a renal ultrasound at this time, but should his renal function continue to decline in the ensuing days, then I will move forward with renal imaging. Continue isotonic saline at 125 mL/h. Thank you for allowing us to participate in the care of this gentleman. I anticipate that his renal function will begin to turn the corner with IV hydration. Continue to hold his ARB and thiazide diuretic. Dictated By: Noah Duarte MD /jodi/casandra /Document#: [id number]
[2016-12-23] MEDS: HYDROCODONE/APAP (5/325) TAB PO PRN ×2 (06:00→13:27)
--- NOTE | 2016-12-23 07:30 | PN ---
Date/Time of Note Date/Time of Note DATE: 12/23/16 TIME: 07:18 Assessment/Plan VTE Prophylaxis VTE Prophylaxis Intervention: ambulation Lines/Catheters IV Catheter Type (from Nrsg): Peripheral IV Assessment/Plan Assessment/Plan 1. DANIELITO: Likely due to ATN from hypoperfusion due to hypotension and RAAS blockade. Presence of hyaline casts in UA suggestive of low flow state/ hypoperfusion to his kidney. Continue to hold HCTZ while receiving IVF and continue to hold ACEi to allow for better renal perfusion. Continue isotonic saline for now. If renal function unchanged will obtain renal ultrasound. 2. Proteinuria: will requantify at a later time once DANIELITO resolves as proteinuria can be exacerbated in the setting of DANIELITO. Continue to avoid ACEi for now due to above. 3. HTN: continue to hold above mentioned meds for the mean time. Will scale back on IVF as appears euvolemic. Ok from renal standpoint for discharge as long as renal function turning the corner. I will arrange for repeat labs in 1 week if DANIELITO not completely resolved and I will address resumption of above mentioned medications as outpatient. Will f/u am labs. Call if ? [phone]. Thank you Subjective 24 Hr Interval Summary Free Text/Dictation Patient being seen for DANIELITO. Offers no complaints. AM labs pending. Constitutional: no complaints Eyes: no complaints ENT: no complaints Respiratory: no complaints Cardiovascular: no complaints Gastrointestinal: no complaints Genitourinary: no complaints Musculoskeletal: no complaints Skin: no complaints Neurologic: no complaints Exam/Review of Systems Vital Signs Vitals Vital Signs Date Time Temp Pulse Resp B/P Pulse Ox O2 Delivery O2 Flow Rate FiO2 12/23/16 07:12 97.8 78 18 146/95 99 12/23/16 01:00 2.0 12/23/16 00:30 Room Air Intake and Output 12/22/16 12/22/16 12/23/16 15:00 23:00 07:00 Intake Total 650 ml Output Total 450 ml Balance 200 ml Exam Constitutional: alert, oriented, well developed Psych: no complaints Head: normocephalic Eyes: nl conjunctiva ENMT: nl external ears & nose Neck: supple Respiratory: clear to auscultation Cardiovascular: regular rate and rhythm Gastrointestinal: soft Musculoskeletal: nl extremities to inspection Extremities: normal pulses Neurological: FUEL CELL SYSTEMS ENGINEER II-XII intact Results Result Diagram: 12/22/16 0105 12/22/16 0105 Results 24 hrs Laboratory Tests Test 12/22/16 10:28 12/22/16 12:17 12/22/16 13:25 12/22/16 17:22 Bedside Glucose 101 133 117 Creatine Kinase 232 H Creatine Kinase Index 1.2 Creatinine Kinase MB (Mass) 2.79 H Troponin I < 0.012 Test 12/22/16 21:14 12/23/16 01:07 Bedside Glucose 110 102 Medications Medications Current Medications Aspirin (Halfprin) 81 mg DAILY PO Last administered on 12/22/16 09:16; Admin Dose 81 MG; Start 12/22/16 at 09:00 Ondansetron HCl (Zofran Inj) 4 mg Q6H PRN IV NAUSEA AND/OR VOMITING; Start at 04:30 Famotidine (Pepcid) 20 mg DAILY PO Last administered on 12/22/16 09:16; Admin Dose 20 MG; Start 12/22/16 at 09:00 Docusate Sodium (Colace) 100 mg BID PO Last administered on 12/22/16 20:59; Admin Dose 100 MG; Start 12/22/16 at 09:00 Diagnostic Test (Pha) (Accu-Chek) 1 ea 02 XX ; Start 12/23/16 at 02:00 Miscellaneous Information 1 ea NOTE XX ; Start 12/22/16 at 05:00 Glucose (Glutose) 15 gm Q15M PRN PO DECREASED GLUCOSE; Start 12/22/16 at 05:00 Glucose (Glutose) 22.5 gm Q15M PRN PO DECREASED GLUCOSE; Start 12/22/16 at 05: 00 Dextrose (D50w Syringe) 25 ml Q15M PRN IV DECREASED GLUCOSE; Start 12/22/16 at 05:00 Dextrose (D50w Syringe) 50 ml Q15M PRN IV DECREASED GLUCOSE; Start 12/22/16 at 05:00 Glucagon (Glucagen) 1 mg Q15M PRN IM DECREASED GLUCOSE; Start 12/22/16 at 05:00 Glucose 15 gm 15 gm Q15M PRN BUCCAL DECREASED GLUCOSE; Start 12/22/16 at 05:00 Sodium Chloride 1,000 ml @ 125 mls/hr Q8H IV Last administered on 12/23/16 05 :59; Admin Dose 125 MLS/HR; Start 12/22/16 at 19:00; Stop 12/23/16 at 18:59 Sodium Chloride (NS) 1,000 ml @ 80 mls/hr [id number] IV ; Start 12/23/16 at 19:00 Acetaminophen/ Hydrocodone Bitart ([place] (5/325)) 1 tab Q6H PRN PO PAIN Last administered on 12/23/16t 06:00; Admin Dose 1 TAB; Start 12/23/16 at 06:00 FREDY DENTON MD Dec 23, 2016 07:29
[2016-12-23 08:03] LABS: ABNORMAL IP MESSAGE 1; BASOPHILS % 0.6 % (0.0-2.0); EOSINOPHILS # 0.2 10^3/ul (0.0-0.5); EOSINOPHILS % 2.6 % (0.0-7.0); HEMATOCRIT 43.6 % (42.0-52.0); HEMOGLOBIN 12.9 g/dl (14.0-18.0); LYMPHOCYTES # 2.1 10^3/ul (0.8-2.9); LYMPHOCYTES % 29.9 % (15.0-51.0); MEAN CORPUSCULAR HEMOGLOBIN 27.1 pg (29.0-33.0); MEAN CORPUSCULAR HGB CONC 29.6 g/dl (32.0-37.0); MEAN CORPUSCULAR VOLUME 91.6 fl (82.0-101.0); MEAN PLATELET VOLUME 13.1 fl (7.4-10.4); MONOCYTE # 0.6 10^3/ul (0.3-0.9); NEUTROPHILS % 57.6 % (39.0-77.0); PLATELET COUNT 137 10^3/UL (140-415); POSITIVE DIFF @See below; RED BLOOD COUNT 4.76 10^6/ul (4.70-6.10); RED CELL DISTRIBUTION WIDTH 15.4 % (11.5-14.5); WHITE BLOOD COUNT 6.9 10^3/ul (4.8-10.8)
[2016-12-23 08:21] LABS: PHOSPHORUS 2.6 mg/dl (2.5-4.9)
[2016-12-23] MEDS: ASPIRIN (EC) 81 MG TAB PO SCH (08:59)
[2016-12-23] MEDS: DOCUSATE SODIUM 100 MG CAP PO SCH ×2 (08:59→20:42)
[2016-12-23] MEDS: FAMOTIDINE 20 MG TAB PO SCH ×2 (09:00→20:42)
[2016-12-23 09:41] LABS: CALCIUM 9.3 mg/dl (8.4-10.2); CREATININE 0.66 mg/dl (0.61-1.24); POTASSIUM 5.2 mmol/L (3.5-5.1)
[2016-12-23] MEDS ORDERED: AMLO-145 PO (12:28)
[2016-12-23] MEDS ORDERED: SITA25TA3 PO (12:30)
--- NOTE | 2016-12-23 12:30 | PDOCDIS ---
Discharge Instructions DIAGNOSIS Discharge Diagnosis 1. Headache suspect secondary to hypotension. 2. Hypotension. Likely secondary to blood pressure regimen. 3. Acute kidney injury 4. Obesity 5. Diabetes HOME CARE INSTRUCTIONS: Diet Instructions: Reduced CalorieSpecial Diet: LOW CARBS, LOW SUGAR FOLLOW UP/APPOINTMENTS Follow-up Plan 1. Follow up with your primary care provider in one week MIKE HINTON Dec 23, 2016 12:30
[2016-12-23] MEDS: AMLODIPINE 5 MG TAB PO SCH (13:27)
[2016-12-23 15:02] LABS: CHOL/HDL RATIO 4.9 RATIO
[2016-12-23] MEDS ORDERED: SOD CHLORIDE 0.9% 1,000 ML IV SCH (19:00)
[2016-12-24] VITALS (14 sets, daily range): BP systolic 133–178; BP diastolic 82–109; PULSE 69–83; RESP 17–19
[2016-12-24] MEDS: ACCU-CHEK XX SCH (02:00)
[2016-12-24] MEDS: INSULIN ASPART [NOVOLOG] 3 ML PEN SC SCH ×3 (07:55→17:55)
[2016-12-24 08:13] LABS: BASOPHIL # 0.1 10^3/ul (0.0-0.1); BASOPHILS % 0.6 % (0.0-2.0); EOSINOPHILS # 0.2 10^3/ul (0.0-0.5); EOSINOPHILS % 1.9 % (0.0-7.0); HEMATOCRIT 45.3 % (42.0-52.0); HEMOGLOBIN 13.9 g/dl (14.0-18.0); LYMPHOCYTES # 2.1 10^3/ul (0.8-2.9); LYMPHOCYTES % 27.2 % (15.0-51.0); MEAN CORPUSCULAR HEMOGLOBIN 26.5 pg (29.0-33.0); MEAN CORPUSCULAR HGB CONC 30.7 g/dl (32.0-37.0); MEAN CORPUSCULAR VOLUME 86.5 fl (82.0-101.0); MEAN PLATELET VOLUME 12.2 fl (7.4-10.4); MONOCYTE # 0.7 10^3/ul (0.3-0.9); MONOCYTES % 9.5 % (0.0-11.0); NEUTROPHILS % 60.5 % (39.0-77.0); PLATELET COUNT 210 10^3/UL (140-415); RED BLOOD COUNT 5.24 10^6/ul (4.70-6.10); RED CELL DISTRIBUTION WIDTH 14.9 % (11.5-14.5); WHITE BLOOD COUNT 7.8 10^3/ul (4.8-10.8)
[2016-12-24 08:35] LABS: CALCIUM 9.9 mg/dl (8.4-10.2); CREATININE 0.71 mg/dl (0.61-1.24)
[2016-12-24] MEDS: DOCUSATE SODIUM 100 MG CAP PO SCH (08:39)
[2016-12-24] MEDS: ASPIRIN (EC) 81 MG TAB PO SCH (08:39)
[2016-12-24] MEDS: FAMOTIDINE 20 MG TAB PO SCH (08:41)
[2016-12-24] MEDS: AMLODIPINE 5 MG TAB PO SCH (08:41)
[2016-12-24] MEDS: HYDROCODONE/APAP (5/325) TAB PO PRN (08:41)
[2016-12-24] MEDS ORDERED: ACET/BUTAL/CAFF TAB PO PRN (14:00)
--- NOTE | 2016-12-24 14:47 | PN ---
Date/Time of Note Date/Time of Note LATE ENTRY DATE: 12/23/16 Assessment/Plan VTE Prophylaxis VTE Prophylaxis Intervention: SCD's Lines/Catheters IV Catheter Type (from Nrs): Saline Lock Assessment/Plan Chief Complaint/Hosp Course Assessment and plan 1. Dizziness likely secondary to hypotension. Monitor at this time. Monitor trend. 2. Acute kidney injury. Continue with senior compliance analyst recommendations. Appears to be improving at this time. 3. Diabetes. Metformin on hold. Switch to Januvia. 5. Obesity. Weight reduction advised. Disposition plan: Monitor hypotension trend. If remains stable will plan to discharge within the next 24 hours. Discussed plan of care with Dr. Sears Problems: Subjective 24 Hr Interval Summary Free Text/Dictation no s/s of distress Exam/Review of Systems Vital Signs Vitals Vital Signs Date Time Temp Pulse Resp B/P Pulse Ox O2 Delivery O2 Flow Rate FiO2 12/24/16 12:27 74 12/24/16 12:08 98.2 18 133/82 94 12/24/16 05:28 30 12/23/16 01:00 2.0 12/23/16 00:30 Room Air Intake and Output 12/23/16 12/23/16 12/24/16 15:00 23:00 07:00 Intake Total 720 ml 500 ml Balance 720 ml 500 ml Exam Constitutional: alert, oriented Psych: nl mood/affect Head: normocephalic Respiratory: clear to auscultation, normal air movement Cardiovascular: regular rate and rhythm Gastrointestinal: non-tender, soft Neurological: ENROLLMENT COORDINATOR II-XII intact, nl mental status, nl speech Results Result Diagram: 12/24/1671612/24/16716 Results 24 hrs Laboratory Tests Test 12/23/16 17:26 12/23/16 20:41 12/24/16 07:17 12/24/16 08:32 Bedside Glucose 91 98 123 White Blood Count 7.8 Red Blood Count 5.24 Hemoglobin 13.9 L Hematocrit 45.3 Mean Corpuscular Volume 86.5 Mean Corpuscular Hemoglobin 26.5 L Mean Corpuscular Hemoglobin Concent 30.7 L Red Cell Distribution Width 14.9 H Platelet Count 210 # Mean Platelet Volume 12.2 H Neutrophils % 60.5 Lymphocytes % 27.2 Monocytes % 9.5 Eosinophils % 1.9 Basophils % 0.6 Nucleated Red Blood Cells % 0.0 Neutrophils # (Manual) 4.7 Lymphocytes # 2.1 Monocytes # 0.7 Eosinophils # 0.2 Basophils # 0.1 Nucleated Red Blood Cells # 0.0 Sodium Level 143 Potassium Level 5.0 Chloride Level 101 Carbon Dioxide Level 29 # Anion Gap 18 H Blood Urea Nitrogen 13 Creatinine 0.71 Glucose Level 108 Calcium Level 9.9 Magnesium Level 1.9 Test 12/24/16 11:48 Bedside Glucose 101 Medications Medications Current Medications Aspirin (Halfprin) 81 mg DAILY PO Last administered on 12/24/16 08:39; Admin Dose 81 MG; Start 12/22/16 at 09:00 Ondansetron HCl (Zofran Inj) 4 mg Q6H PRN IV NAUSEA AND/OR VOMITING; Start at 04:30 Docusate Sodium (Colace) 100 mg BID PO Last administered on 12/24/16 08:39; Admin Dose 100 MG; Start 12/22/16 at 09:00 Diagnostic Test (Pha) (Accu-Chek) 1 ea 02 XX ; Start 12/23/16 at 02:00 Miscellaneous Information 1 ea NOTE XX ; Start 12/22/16 at 05:00 Glucose (Glutose) 15 gm Q15M PRN PO DECREASED GLUCOSE; Start 12/22/16 at 05:00 Glucose (Glutose) 22.5 gm Q15M PRN PO DECREASED GLUCOSE; Start 12/22/16 at 05: 00 Dextrose (D50w Syringe) 25 ml Q15M PRN IV DECREASED GLUCOSE; Start 12/22/16 at 05:00 Dextrose (D50w Syringe) 50 ml Q15M PRN IV DECREASED GLUCOSE; Start 12/22/16 at 05:00 Glucagon (Glucagen) 1 mg Q15M PRN IM DECREASED GLUCOSE; Start 12/22/16 at 05:00 Glucose (Glutose) 15 gm Q15M PRN BUCCAL DECREASED GLUCOSE; Start 12/22/16 at 05 :00 Acetaminophen/ Hydrocodone Bitart ([place] (5/325)) 1 tab Q6H PRN PO PAIN Last administered on 12/24/16 08:41; Admin Dose 1 TAB; Start 12/23/16 at 06:00 Amlodipine Besylate (Norvasc) 5 mg DAILY PO Last administered on 12/24/16 08: 41; Admin Dose 5 MG; Start 12/23/16 at 12:30 Famotidine (Pepcid) 20 mg BID PO Last administered on 12/24/16 08:41; Admin Dose 20 MG; Start 12/23/16 at 21:00 Acetaminophen/ Butalbital/ Caffeine (Fioricet) 1 tab Q4H PRN PO PAIN; Start at 14:00 MIKE HINTON Dec 24, 2016 14:47
--- NOTE | 2016-12-24 17:07 | DS ---
Date/Time of Note Date/Time of Note DATE: 12/24/16 TIME: 16:49 Discharge Summary Admission/Discharge Info Admit Date/Time Dec 22, 2016 at 04:24 Discharge Date/Time Discharge Diagnosis 1. Headache suspect secondary to hypotension. 2. Hypotension. Likely secondary to blood pressure regimen. 3. Acute kidney injury 4. Obesity 5. Diabetes Patient Condition: Stable Consults 1. Dr. Zamora Holden Hospital Course This is a 51 year old male with a history of hypertension and diabets who came to [facility] after reports of feeling headache, dizziness, and lightheadedness. At that time his blood pressure was checked and family reported it was low. He was brought to [facility] for further investigation. Upon arrival , Patient was seen with wbc: 15.2, (likely reactive, as no known source). Patient was also seen with DANIELITO. For this patient was seen by water plumber. We did renally dose medications. He did have his diabetes and antihypertensive medications for better control with mindful observance of renal function. During his course of stay he did improve. He was otherwiase optimized medically. He was provied with analgesics for his headache with good response. The plan of care was discussed with the patient and patient did verbalize his understanding. On the day of discharge, patient was in stable condition. Discussed plan of care with Dr. [facility] Active Scripts Sitagliptin* (Januvia*) 25 Mg Tablet, 25 MG PO DAILY, #30 TAB Prov:MIKE HINTON 12/23/16 Amlodipine Besylate* (Amlodipine Besylate*) 5 Mg Tablet, 5 MG PO DAILY for 30 Days, TAB Prov:MIKE HINTON 12/23/16 Aspirin* (Aspirin* EC) 81 Mg Tablet.dr 81 MG PO DAILY for 90 Days, 1 Refill Prov:MARTIN OVIEDO MD 08/31/16 Reported Medications Hydrochlorothiazide* (Hydrochlorothiazide*) 25 Mg Tab, 25 MG PO DAILY, TAB 08/11/14 Fosinopril Sodium (Fosinopril Sodium) 40 Mg Tablet, 40 MG PO DAILY, TAB 08/11/14 Follow-up Plan HOME CARE INSTRUCTIONS: Diet Instructions: Reduced CalorieSpecial Diet: LOW CARBS, LOW SUGAR FOLLOW UP/APPOINTMENTS Follow-up Plan 1. Follow up with your primary care provider in one week Primary Care Provider Care Physician No Primary Time spent on discharge: > 30 minutes Pending Labs Laboratory Tests Test 12/23/16 17:26 12/23/16 20:41 12/24/16 07:17 12/24/16 08:32 Bedside Glucose 91mg/dL (70-220) 98mg/dL (70-220) 123mg/dL (70-220) White Blood Count 7.810^3/ul (4.8-10.8) Red Blood Count 5.2410^6/ul (4.70-6.10) Hemoglobin 13.9g/dl (14.0-18.0) Hematocrit 45.3% (42.0-52.0) Mean Corpuscular Volume 86.5fl (82.0-101.0) Mean Corpuscular Hemoglobin 26.5pg (29.0-33.0) Mean Corpuscular Hemoglobin Concent 30.7g/dl (32.0-37.0) Red Cell Distribution Width 14.9% (11.5-14.5) Platelet Count 19681^3/UL (140-415) Mean Platelet Volume 12.2fl (7.4-10.4) Neutrophils % 60.5% (39.0-77.0) Lymphocytes % 27.2% (15.0-51.0) Monocytes % 9.5% (0.0-11.0) Eosinophils % 1.9% (0.0-7.0) Basophils % 0.6% (0.0-2.0) Nucleated Red Blood Cells % 0.0/100WBC (0.0-0.0) Neutrophils # (Manual) 4.710^3/ul (1.7-7.5) Lymphocytes # 2.110^3/ul (0.8-2.9) Monocytes # 0.710^3/ul (0.3-0.9) Eosinophils # 0.210^3/ul (0.0-0.5) Basophils # 0.110^3/ul (0.0-0.1) Nucleated Red Blood Cells # 0.010^3/ul (0.0-0.0) Sodium Level 143mmol/L (135-144) Potassium Level 5.0mmol/L (3.5-5.1) Chloride Level 101mmol/L (97-110) Carbon Dioxide Level 29mmol/L (21-31) Anion Gap 18 (8-16) Blood Urea Nitrogen 13mg/dl (7-20) Creatinine 0.71mg/dl (0.61-1.24) Glucose Level 108mg/dl (70-220) Calcium Level 9.9mg/dl (8.4-10.2) Magnesium Level 1.9mg/dl (1.7-2.5) Test 12/24/16 11:48 Bedside Glucose 101mg/dL (70-220) MIKE HINTON Dec 24, 2016 16:59
== END 2016-12-24 18:10 | disposition home or self-care (01) | DRG 312 ==
LOC: E/R 00:13 → MS3 04:24 → TEL 12-23 00:23
PROVIDERS: ADMIT Family Medicine; ATTEND Family Medicine
DX: I95.2 Hypotension due to drugs (principal); N17.0 Acute kidney failure with tubular necrosis; I10 Essential (primary) hypertension; E11.9 Type 2 diabetes mellitus without complications; E66.9 Obesity, unspecified; T46.4X5A Adverse effect of angiotensin-converting-enzyme inhibitors, initial encounter; Y92.019 Unspecified place in single-family (private) house as the place of occurrence of the external cause; Z68.33 Body mass index [BMI] 33.0-33.9, adult; Z71.3 Dietary counseling and surveillance; Z79.4 Long term (current) use of insulin; Z79.82 Long term (current) use of aspirin
CPT/HCPCS: 36415; 70450; 70551; 71010; 80048; 80061; 80076; 80307; 81001; 81003; 82550; 82553; 82962; 83036; 83690; 83735; 84100; 84155; 84443; 84484; 85025; 93005; 94660; J1815; J7030

== ENCOUNTER 2017-01-07 20:54 | Emergency (ER) | payer OTHER ==
[~2017-01-07] VITALS: Ht 175.3 cm; Wt 140.0 kg
[~2017-01-07 20:54] MED LIST changes: +AMLO-145 PO; -FOSI40TA3 PO; -HYD25 PO; +SITA25TA3 PO
[2017-01-07 20:55] VITALS: Ht 175.3 cm; Wt 140.0 kg
[2017-01-07] MEDS ORDERED: SOD CHLORIDE 0.9% 1,000 ML IV STA (22:51)
[2017-01-07] MEDS ORDERED: PANTOPRAZOLE 40 MG INJ IV ONE (23:00)
[2017-01-07 23:32] LABS: BASOPHIL # 0.1 10^3/ul (0.0-0.1); BASOPHILS % 0.5 % (0.0-2.0); EOSINOPHILS # 0.1 10^3/ul (0.0-0.5); EOSINOPHILS % 1.2 % (0.0-7.0); HEMATOCRIT 45.3 % (42.0-52.0); LYMPHOCYTES # 2.8 10^3/ul (0.8-2.9); LYMPHOCYTES % 26.8 % (15.0-51.0); MEAN CORPUSCULAR HEMOGLOBIN 26.8 pg (29.0-33.0); MEAN CORPUSCULAR HGB CONC 30.9 g/dl (32.0-37.0); MEAN CORPUSCULAR VOLUME 86.6 fl (82.0-101.0); MONOCYTE # 0.8 10^3/ul (0.3-0.9); MONOCYTES % 7.7 % (0.0-11.0); NEUTROPHIL # 6.7 10^3/ul (1.6-7.5); NEUTROPHILS % 63.5 % (39.0-77.0); PLATELET COUNT 222 10^3/UL (140-415); RED BLOOD COUNT 5.23 10^6/ul (4.70-6.10); RED CELL DISTRIBUTION WIDTH 14.9 % (11.5-14.5); WHITE BLOOD COUNT 10.6 10^3/ul (4.8-10.8)
[2017-01-07 23:46] LABS: INR 0.99; PROTIME 13.1 Sec (12.2-14.2)
[2017-01-07 23:47] LABS: PARTIAL THROMBOPLASTIN TIME 32.3 Sec (25.0-35.0)
[2017-01-07 23:49] LABS: ALBUMIN 4.2 g/dl (3.3-4.9); ALBUMIN/GLOBULIN RATIO 1.16; BILIRUBIN,INDIRECT 0.3 mg/dl (0-1.1); BILIRUBIN,TOTAL 0.3 mg/dl (0.2-1.3); CALCIUM 9.6 mg/dl (8.4-10.2); CREATININE 0.82 mg/dl (0.61-1.24); POTASSIUM 4.1 mmol/L (3.5-5.1); TOTAL PROTEIN 7.8 g/dl (6.1-8.1)
--- NOTE | 2017-01-08 00:57 | RADRPT ---
PROCEDURE: CT ABDOMEN/PELVIS WITHOUT CONTRAST CLINICAL INDICATION: 51 year-old male with abdominal pain. TECHNIQUE: The study was performed utilizing a GE Elix[employer]peed VCT 64-slice CT scanner. Direct axia l sections were obtained through the abdomen and pelvis without the use of intravenous contrast mate rial. Sagittal and coronal reformations were obtained. One or more of the following dose reduction t echniques were utilized: automated exposure control, adjustment of the mA and/or kV according to pat ient's size or use of iterative reconstruction technique. The images were reviewed on a PACS workst [facility]. CTD/vol = 23.8 mGy; Total Exam DLP = 1619.0 mGy-cm. COMPARISON: None. FINDINGS: There is minimal bibasilar subsegmental atelectasis and/or scarring.. There is no evidence for sign ificant pleural effusion. The liver has a normal size and contour without focal areas of abnormal d ensity. No intrahepatic nor extrahepatic biliary ductal dilatation is seen. The gallbladder demonstr ates no wall thickening nor pericholecystic fluid. No biliary stones are evident. The pancreas is wi thout areas of abnormal attenuation. The spleen is identified and has a normal size without abnorma l density. The adrenal glands are unremarkable. The kidneys are without abnormal density. No hydrour eteronephrosis nor nephroureterolithiasis is evident. The urinary bladder contains urine. There is a small hiatal hernia. There is mild retained stool identified within the colon without obstruction. There are a few small diverticula within the sigmoid colon without surrounding inflammatory changes . The appendix is not visualized however there is no periappendiceal inflammatory changes. There are mild bilateral inguinal hernias containing fat. There is no significant pelvic free fluid. The prostate is not enlarged. The aortoiliac vessels are without aneurysmal dilatation. Mild degenerativ e changes are present within the spine. IMPRESSION: 1. No CT evidence for obstructive uropathy or renal calculi. 2. Small hiatal hernia. 3. Mild retained stool without obstruction. 4. Minimal sigmoid diverticulosis. 5. Mild bilateral inguinal hernias containing fat. 6. Degenerative changes within the spine. .Ar Ortiz MD, Date Time Electronically viewed and signed by .Ar Ortiz MD, on 01/08/2017 00:56 .M/
--- NOTE | 2017-01-08 02:06 | ERD ---
ER Documentation Chief Complaint Date/Time DATE: 01/08/17 TIME: 01:57 Chief Complaint BRIGHT RED BLOOD IN STOOL, VOMITED SLIGHT BLOOD NOTED STARTED TODAY HPI This 51-year-old, diabetic male patient presents to emergency department today for evaluation of bright red blood in stool. Denies abdominal pain, history of hemorrhoids, patient's reports that he has had a colonoscopy 4-5 years ago for evaluation of anemia, reports no abnormal result was found. Patient states he has gastritis is on omeprazole. Reports scant blood in sputum today when brushing his teeth states he gagged himself coughed up some mucus with blood- tinged in it. He denies chest pain, shortness of breath, dizziness, ROS All systems reviewed and are negative except as per history of present illness. Medications Home Meds Active Scripts Ranitidine Hcl* (Zantac*) 150 Mg Tablet, 150 MG PO BID Y for EPIGASTRIC PAIN, # 30 TAB Prov:BEBETO,JAMAL 01/08/17 Polyethylene Glycol* (Miralax*) 17 Gm Powd.pack, 17 GM PO DAILY, #7 Prov:BEBETO,JAMAL 01/08/17 Hydrocortisone Acetate (Anusol-Hc) 25 Mg Supp.rect, 1 SUPP WA BID Y for HEMORROID PAIN/ITCHING, #12 SUPP.RECT Prov:BEBETO,JAMAL 01/08/17 Sitagliptin* (Januvia*) 25 Mg Tablet, 25 MG PO DAILY, #30 TAB Prov:MIKE HINTON 12/23/16 Amlodipine Besylate* (Amlodipine Besylate*) 5 Mg Tablet, 5 MG PO DAILY for 30 Days, TAB Prov:MIKE HINTON 12/23/16 Aspirin* (Aspirin* EC) 81 Mg Tablet.dr, 81 MG PO DAILY for 90 Days, 1 Refill Prov:MARTIN OVIEDO MD 08/31/16 Allergies Allergies: Coded Allergies: No Known Allergy (Unverified , 01/07/17) PMhx/Soc History of Surgery: Yes (RIGHT KNEE) Anesthesia Reaction: No Hx Neurological Disorder: No Hx Respiratory Disorders: No Hx Cardiac Disorders: Yes (HTN, ) Hx Psychiatric Problems: No Hx Miscellaneous Medical Probl: Yes (dm) Hx Alcohol Use: Yes Hx Substance Use: No Hx Tobacco Use: No Smoking Status: Never smoker Physical Exam Vitals Vital Signs Date Time Temp Pulse Resp B/P Pulse Ox O2 Delivery O2 Flow Rate FiO2 01/07/17 20:55 99.4 106 20 169/100 98 Physical Exam Const: Well-hydrated well-appearing , obese in no acute distress Head: Atraumatic Eyes: Normal Conjunctiva PERRLA, EOMI, no pallor ENT: Normal External Ears, Nose and Mouth mucous membranes moist Neck: Full range of motion..~ No meningismus. Resp: Clear to auscultation bilaterally no rales wheezes or rhonchi, no respiratory distress Cardio: S1-S2 no S3-S4 regular rate and rhythm, no murmurs Abd: Abdomen obese, distended, upper quadrants tympanic to percussion, lower quadrants dull. No epigastric tenderness, no Neely sign, no McBurney's point tenderness. No periumbilical tenderness, hiatal hernia noted. CVA tenderness Skin: No petechiae or rashes Back: Ext: Neur: Awake and alert Psych: Normal Mood and Affect Result Diagram: 01/07/17231901/07/17 2320 Results 24 hrs Laboratory Tests Test 01/07/17 23:20 White Blood Count 10.610^3/ul Red Blood Count 5.2310^6/ul Hemoglobin 14.0g/dl Hematocrit 45.3% Mean Corpuscular Volume 86.6fl Mean Corpuscular Hemoglobin 26.8pg Mean Corpuscular Hemoglobin Concent 30.9g/dl Red Cell Distribution Width 14.9% Platelet Count 43328^3/UL Mean Platelet Volume 12.0fl Neutrophils % 63.5% Lymphocytes % 26.8% Monocytes % 7.7% Eosinophils % 1.2% Basophils % 0.5% Nucleated Red Blood Cells % 0.0/100WBC Neutrophils # 6.710^3/ul Lymphocytes # 2.810^3/ul Monocytes # 0.810^3/ul Eosinophils # 0.110^3/ul Basophils # 0.110^3/ul Nucleated Red Blood Cells # 0.010^3/ul Prothrombin Time 13.1Sec Prothrombin Time Ratio 1.0 INR International Normalized Ratio 0.99 Activated Partial Thromboplast Time 32.3Sec Sodium Level 140mmol/L Potassium Level 4.1mmol/L Chloride Level 103mmol/L Carbon Dioxide Level 29mmol/L Anion Gap 12 Blood Urea Nitrogen 14mg/dl Creatinine 0.82mg/dl Glucose Level 96mg/dl Calcium Level 9.6mg/dl Total Bilirubin 0.3mg/dl Direct Bilirubin 0.00mg/dl Indirect Bilirubin 0.3mg/dl Aspartate Amino Transf (AST/SGOT) 25IU/L Alanine Aminotransferase (ALT/SGPT) 55IU/L Alkaline Phosphatase 80IU/L Total Protein 7.8g/dl Albumin 4.2g/dl Globulin 3.60g/dl Albumin/Globulin Ratio 1.16 Lipase 123U/L Current Medications Medications (Trade) Dose Ordered Sig/Dave Route PRN Reason Start Time Stop Time Status Last Admin Dose Admin Sodium Chloride (NS) 1,000 ml @ 1,000 mls/hr Q1H STAT IV 01/07/17 22:51 01/07/17 23:50 DC 01/07/17 23:23 Pantoprazole (Protonix Iv) 40 mg ONCE ONCE IV 01/07/17 23:00 01/07/17 23:01 DC 01/07/17 23:22 Interpretation text CBC shows no evidence of hemorrhage or infection Chemistry shows no evidence of significant electrolyte abnormalities or renal insufficiency Liver function tests shows no evidence of acute biliary or hepatic dysfunction Procedures/MDM PROCEDURE: CT ABDOMEN/PELVIS WITHOUT CONTRAST CLINICAL INDICATION: 51 year-old male with abdominal pain. TECHNIQUE: The study was performed utilizing a [employer] VCT 64-slice CT scanner. Direct axial sections were obtained through the abdomen and pelvis without the use of intravenous contrast material. Sagittal and coronal reformations were obtained. One or more of the following dose reduction techniques were utilized: automated exposure control, adjustment of the mA and/ or kV according to patient's size or use of iterative reconstruction technique. The images were reviewed on a PACS workstation. CTD/vol = 23.8 mGy; Total Exam DLP = 1619.0 mGy-cm. COMPARISON: None. FINDINGS: There is minimal bibasilar subsegmental atelectasis and/or scarring.. There is no evidence for significant pleural effusion. The liver has a normal size and contour without focal areas of abnormal density. No intrahepatic nor extrahepatic biliary ductal dilatation is seen. The gallbladder demonstrates no wall thickening nor pericholecystic fluid. No biliary stones are evident. The pancreas is without areas of abnormal attenuation. The spleen is identified and has a normal size without abnormal density. The adrenal glands are unremarkable. The kidneys are without abnormal density. No hydroureteronephrosis nor nephrolithiasis is evident. The urinary bladder contains urine. There is a small hiatal hernia. There is mild retained stool identified within the colon without obstruction. There are a few small diverticula within the sigmoid colon without surrounding inflammatory changes. The appendix is not visualized however there is no periappendiceal inflammatory changes. There are mild bilateral inguinal hernias containing fat. There is no significant pelvic free fluid. The prostate is not enlarged. The aortoiliac vessels are without aneurysmal dilatation. Mild degenerative changes are present within the spine. IMPRESSION: 1. No CT evidence for obstructive uropathy or renal calculi. 2. Small hiatal hernia. 3. Mild retained stool without obstruction. 4. Minimal sigmoid diverticulosis. 5. Mild bilateral inguinal hernias containing fat. 6. Degenerative changes within the spine. Electronically viewed and signed by .Ar Ortiz MD, MD on 01/08/2017 00:56 This 51-year-old diabetic male patient presents to emergency department for evaluation of rectal bleeding that started today. Patient denies any abdominal pain or history of rectal bleeding, denies alcohol consumption, patient's abdomen is obese, tympanic to percussion, but nontender. Patient is able to produce stool sample with visible blood on the outside of stool suggestive of internal hemorrhoids. Patient denies history of constipation or diarrhea. Denies fever, chills. Emergency room course today includes laboratory testing with no evidence of bacterial infection, anemia with no evidence of hemorrhage , no electrolyte imbalance, or renal insufficiency, no hepatitis or pancreatitis , urinalysis negative for leukocytosis, nitrates, or microscopic hematuria. CAT scan of abdomen contrast as an interpreted by radiologist no CT evidence of obstructive uropathy or renal calculi. Small hiatal hernia. Mild retained stool without obstruction. Minimal sigmoid diverticulosis. Mild bacterial inguinal hernias containing fat. Degenerative changes within the spine. Patient receives 1 L of normal saline, 40 mg of IV Protonix towards feeling improvement after it meant. His case discussed with supervising physician Dr. Miramontes patient is stable for discharge instructed to return for abdominal pain or recurrence of rectal bleeding. Patient will be treated prophylactically for internal hemorrhoids with Anusol HC suppositories, add Zantac 150 twice daily 15 days, hygiene discussed increase fluids, increase fiber rich foods, start MiraLAX daily.. No evidence of infection patient does not require antibiotics therapy at this time. Follow-up with primary care physician this week for reevaluation and referral for screening colonoscopy age 51. Patient is stable with no new complaints during ER course, clinically there is no current evidence to suggest acute abdomen, acute coronary syndrome, GI bleed. Or any other emergent condition appearing to require further evaluation or hospitalization. I feel the patient is stable for discharge at this time. I have discussed results, examination findings, the treatment plan with the patient and family present prior to discharge. Indications for emergent reevaluation, side effects of medication were also discussed. All questions were answered. Patient verbalizes understanding and agrees with plan of care. Departure Diagnosis: Primary Impression: Rectal bleeding Additional Impression: Occult blood in stools Condition: Good Patient Instructions: When You Have Gastrointestinal (GI) Bleeding Referrals: [facility] Additional Instructions: Thank you for for coming to [facility] for your care today. Please ask your nurse or provider if you have questions about your care today and do not leave until all your questions have been answered. Please use any medications given as directed and follow-up with your doctor (or the doctor you were referred to) in the next 2-3 days. If you do not have a primary care doctor you may follow up at the [facility] (listed below). You may also use motrin and tylenol as needed for fever and/or pain unless instructed otherwise by your provider or nurse. Indications for more urgent follow-up have been discussed, but you may return to the Emergency Department at ANY time for any worrisome or worsening symptoms. If you have abdominal pain, please know that no test or exam you received is perfect and you should follow up within 8 hours for continued pain. If you had any imaging studies today, such as an X-Ray or CT Scan, these studies will be reviewed later by a radiologist. You will be called if there are important findings that were not identified today, so make sure the contact information you provided at registration is correct. If you received any narcotic pain control medicine today, such as Vicodin, Morphine or Dilaudid, your coordination and judgment may be affected for a number of hours. Please do not drive or operate heavy machinery, and you may want someone to assist you at home. If you were given a prescription for narcotic medication, be aware that it is very addictive- use sparingly and only if necessary. JAMAL TATE Jan 08, 2017 02:06
[2017-01-08] MEDS ORDERED: HYDR25SU23 PR (03:17)
[2017-01-08] MEDS ORDERED: RANI150T9 PO (03:17)
[2017-01-08] MEDS ORDERED: POLY17PO6 PO (03:17)
[2017-01-08 03:20] VITALS: BP 150/94; PULSE 78; RESP 18; TEMP 97.8
== END 2017-01-08 03:48 | disposition home or self-care (01) ==
LOC: FTE 20:54
DX: K62.5 Hemorrhage of anus and rectum (principal); R19.5 Other fecal abnormalities; I10 Essential (primary) hypertension; E11.9 Type 2 diabetes mellitus without complications; Z79.82 Long term (current) use of aspirin
CPT/HCPCS: 36415; 74176; 80053; 83690; 85025; 85610; 85730; 96374; C9113; J7030; Z7502

== ENCOUNTER 2017-06-04 12:06 | Day surgery (SDC) | END 2017-06-04 16:18 | disposition home or self-care (01) ==

== ENCOUNTER 2017-12-29 12:03 | Emergency (ER) | END 2017-12-29 14:37 | disposition home or self-care (01) ==